=== PATIENT | male | born 1945 | race Caucasian/White ===

== ENCOUNTER 2018-10-27 11:32 | Inpatient (IN) ==
--- NOTE | 2018-10-21 10:24 | PAT Medication Instructions ---
Medication Instructions Date of Service October 21, 2018 Home Medications chlorpheniramine maleate [Chlor-Trimeton] 4 mg PO Q6H NEEDED DO NOT take the morning of surgery chlorpheniramine maleate [Chlor-Trimeton] 4 mg PO Q6H NEEDED Take morning of surgery NOTHING TO EAT OR DRINK AFTER MIDNIGHT Other Notes If you have any questions please call us at [phone] or [phone] or [phone] or [phone]
--- NOTE | 2018-10-21 11:39 | Anesthesiology Consultation ---
Date of Service October 21, 2018 Assessment & Plan (1) Encounter for pre-operative examination: Chart Review Chart Review: Acceptable Risk for Surgery and Patient seen in Pre Admission Testing Consults Requested none Teaching & Discussion Pre-Anesthesia Teaching/Discussion Notes: Instructed NPO after midnight before surgery, except medications with 15 cc of water. Medication instructions provided according to the PAT guidelines. History Surgery Operation Date: 10/27/18 13:10 Proposed Procedures p Laparoscopic Hand Assisted Nephrectomy - Jonah Gallagher II, DO Height/Weight Height: 6 ft 2 in Weight: 116.3 kg Allergies Allergy/AdvReac Type Severity Reaction Status Date / Time pollen extracts Allergy Mild HAYFEVER-SNEEZING, Verified 10/19/18 15:27 CONGESTION Medications Home Medications Medication Instructions Recorded Confirmed Last Taken chlorpheniramine maleate 4 mg PO Q6H PRN 10/19/18 10/19/18 Unknown [Chlor-Trimeton] Past Medical History Medical History History of hematuria History of kidney stones Indwelling Leon catheter present Past Surgical History Surgical History History of tonsillectomy (Resolved 1954) Past Anesthesia History No Hx of Anesthesia Complications and No Family Hx of Anesthesia Complications History of PONV No Motion Sickness Screening History of Motion Sickness: Yes Social History Smoking Status: Former smoker Smoking cigarettes per day: Smoked x 15-20 years. Smoked ~2ppd. Do You Dip or Chew Tobacco: No Smoking End Date: 5-6 YR AGO Hx Alcohol Use: Yes Alcohol type: hard liquor alcohol intake frequency: 0-2 drinks per day Hx Substance Use: No Exercise / Class Metabolic Activity II 4-5 Yardwork/Stairs/Walk up hill (Able to climb FOS. Denies SOB or CP. Plays gold in nice weather. ) Review of Systems Patient denies chest pain, shortness of breath, dyspnea on exertion, joint pain , reflux, cough, wheezing, palpitations. +acid reflux (diet controlled) Physical Exam Vital Signs BP: 162/94 (advised) P: 78 R: 22 T: 98.0 SPO2: 96% on RA Constitutional + obese ENMT Thyromental Distance: < 3.5 Finger Breadths (3) Mallampati Class: II lower partial Neck normal visual inspection and trachea midline; neck extension not limited Respiratory normal respiratory effort Auscultation: lungs clear to auscultation bilaterally Cardiovascular Rate/Rhythm: regular rate and regular rhythm Heart Sounds: no murmur Vessels: no carotid bruit Neurologic moves all extremities Psychiatric Orientation: alert and oriented x 3 Testing Electrocardiogram Date: 10/21/18 Findings: + NSR @ (79) Cannot rule out anterior infarct, age undetermined. Chest X-Ray Date: 10/21/18 FINDINGS: PA and lateral chest radiographs are obtained. No prior studies are available for comparison at the time of dictation. The cardiomediastinal silhouette is unremarkable. Small calcified granulomas are noted. There is minimal left basilar scarring/atelectasis. No airspace consolidation or pleural effusion is identified. There is no pneumothorax. The skeletal structures are osteopenic. The bony thorax appears intact. Degenerative change is noted throughout the thoracic spine. IMPRESSION: No active disease in the chest. Other Testing CT Abdomen/Pelvis w/wo contrast 10/21/18: IMPRESSION: 1. 16 cm mass arising from the upper pole the right kidney. This statistically represents a renal cell carcinoma with areas of necrosis. Segmental XGP would be within the differential although significantly less likely. 2. Right-sided nephrolithiasis 3. No ureteral or bladder calculi identified. 4. No pathologic adenopathy 5. No CT evidence of skeletal metastasis Laboratory Results 10/21/18 11:47 10/21/18 11:47 Urine Color Yellow 10/21/18 Unknown Urine Appearance Clear (Clear) 10/21/18 Unknown Urine pH 5.0 (4.5-7.5) 10/21/18 Unknown Ur Specific Rinard 1.019 (1.000-1.030) 10/21/18 Unknown Urine Protein Trace (Negative) H 10/21/18 Unknown Urine Glucose (UA) Negative (Negative) 10/21/18 Unknown Urine Ketones Negative (Negative) 10/21/18 Unknown Urine Nitrite Negative (Negative) 10/21/18 Unknown Ur Leukocyte Esterase Negative (Negative) 10/21/18 Unknown Urine WBC (Auto) 1-5 /hpf (0-5) 10/21/18 Unknown Urine RBC (Auto) 5-10 /hpf (0-4) H 10/21/18 Unknown U Hyaline Cast (Auto) 1-5 /lpf (0-5) 10/21/18 Unknown U Epithel Cells (Auto) 0-5 /lpf (0-5) 10/21/18 Unknown Urine Bacteria (Auto) Negative (Negative) 10/21/18 Unknown 10/21/18 Unknown Urine Culture - Preliminary Urine,Clean Catch Enterococcus species
[2018-10-21 12:39] LABS: Basophils # (auto) 0.04 K/uL (0-0.2); Basophils % (auto) 0.4 %; Eosinophils # (auto) 0.16 K/uL (0-0.5); Eosinophils % (auto) 1.6 %; Hematocrit (blood only) 41.6 % (42-52); Hemoglobin 13.6 g/dL (14.0-18.0); Immature Granulocytes # (auto) 0.01 K/uL (0.00-0.02); Immature Granulocytes % (auto) 0.1 %; Lymphocytes # (auto) 2.44 K/uL (1.2-3.4); Lymphocytes % (auto) 25.2 %; Mean Corpuscular Hgb Conc 32.7 g/dL (32-36); Mean Corpuscular Volume 91.8 fL (80-100); Mean Platelet Volume 9.7 fL (7.4-10.4); Monocytes # (auto) 0.74 K/uL (0.11-0.59); Monocytes % (auto) 7.6 %; Neutrophils # (auto) 6.31 K/uL (1.4-6.5); Neutrophils % (auto) 65.1 %; Platelet Count 391 K/uL (130-400); RDW Coefficient of Variation 14.2 % (11.5-14.5); RDW Standard Deviation 48.1 fL (36.4-46.3); Red Blood Count 4.53 M/uL (4.7-6.1)
[2018-10-21 12:45] LABS: BUN Creatinine Ratio 17.3 (10-20); Calcium 9.5 mg/dl (8.5-10.1); Creatinine Clr Calc Pharmacy 74.1 ml/min; Est GFR (African American) 67.4; Est GFR (Non-African American) 58.1
--- NOTE | 2018-10-21 13:05 | XRay Report ---
TWO VIEW CHEST CLINICAL HISTORY: Preoperative examination. FINDINGS: PA and lateral chest radiographs are obtained. No prior studies are available for compariso n at the time of dictation. The cardiomediastinal silhouette is unremarkable. Small calcified granul omas are noted. There is minimal left basilar scarring/atelectasis. No airspace consolidation or pleu ral effusion is identified. There is no pneumothorax. The skeletal structures are osteopenic. The bon y thorax appears intact. Degenerative change is noted throughout the thoracic spine. IMPRESSION: No active disease in the chest. Electronically signed by: Hernan Pisano M.D. 10/21/2018 1:04 PM
[2018-10-21 13:06] LABS: Appearance Urine Clear (Clear); Bacteria Urine Automated Negative (Negative); Bilirubin Urine Negative (Negative); Blood Urine 3+ (Negative); Color Urine Yellow; Epithelial Cell Urine Auto 0-5 /lpf (0-5); Glucose Urine UA Negative (Negative); Ketones Urine Negative (Negative); Leukocyte Esterase Urine Negative (Negative); Nitrite Urine Negative (Negative); Protein Urine Trace (Negative); Specific Gravity Urine 1.019 (1.000-1.030); Urobilinogen Urine Negative (Negative)
[~2018-10-27 11:32] MED LIST: CEFAZOLIN 3000MG 65 ML IV SCH; CIPROFLOXACIN 400 MG/200 ML BAG IV SCH; LR 15ML/HR IV SCH
[2018-10-27] MEDS ORDERED: NON-FORMULARY MEDICATION (Chlorpheniramine Maleate [Chlor-Trimeton] 4 MG) PO PRN (18:11)
[2018-10-27] MEDS: LACTATED RINGER'S 1,000 ML IV SCH (19:44)
[2018-10-27] MEDS: CIPROFLOXACIN 500 MG TAB PO SCH (21:36)
[2018-10-27] MEDS: AMOXICILLIN/CLAVULANATE 875 MG TAB PO SCH (21:36)
[2018-10-28] MEDS: LACTATED RINGER'S 1,000 ML IV SCH ×2 (02:24→10:11)
[2018-10-28] MEDS ORDERED: CIPROFLOXACIN 400 MG/200 ML BAG IV SCH (06:00)
[2018-10-28] MEDS ORDERED: CEFAZOLIN 3000MG 65 ML IV SCH (06:00)
[2018-10-28] MEDS: METOPROLOL TARTRATE 25 MG TAB PO SCH (07:42)
[2018-10-28] MEDS: AMOXICILLIN/CLAVULANATE 875 MG TAB PO SCH (07:42)
[2018-10-28] MEDS: CIPROFLOXACIN 500 MG TAB PO SCH (07:42)
[2018-10-28 07:48] LABS: Basophils # (auto) 0.03 K/uL (0-0.2); Basophils % (auto) 0.4 %; Eosinophils % (auto) 2.6 %; Hematocrit (blood only) 39.3 % (42-52); Immature Granulocytes # (auto) 0.01 K/uL (0.00-0.02); Immature Granulocytes % (auto) 0.1 %; Lymphocytes # (auto) 2.28 K/uL (1.2-3.4); Mean Corpuscular Hgb Conc 33.1 g/dL (32-36); Mean Corpuscular Volume 93.1 fL (80-100); Mean Platelet Volume 9.5 fL (7.4-10.4); Monocytes # (auto) 0.64 K/uL (0.11-0.59); Monocytes % (auto) 8.4 %; Neutrophils # (auto) 4.45 K/uL (1.4-6.5); Neutrophils % (auto) 58.5 %; Platelet Count 278 K/uL (130-400); RDW Coefficient of Variation 14.4 % (11.5-14.5); RDW Standard Deviation 48.8 fL (36.4-46.3); Red Blood Count 4.22 M/uL (4.7-6.1); White Blood Count 7.61 K/uL (4.8-10.8)
[2018-10-28] MEDS ORDERED: PNEUMOCOCCAL POLYSACCHARIDES 25 MCG/0.5 ML VIAL/SYR IM ONE ×2 (08:00→08:15)
[2018-10-28] MEDS ORDERED: PNEUMOCOCCAL ADMINISTRATION CHARGE ONE ×2 (08:00→08:15)
[2018-10-28] MEDS ORDERED: INFLUENZA VACCINE HIGH DOSE 65+ 0.5 ML SYR IM ONE ×2 (08:00→08:15)
[2018-10-28] MEDS ORDERED: INFLUENZA ADMINISTRATION CHARGE ONE ×2 (08:00→08:15)
[2018-10-28 08:24] LABS: Calcium 8.5 mg/dl (8.5-10.1); Creatinine Clr Calc Pharmacy 84.2 ml/min; Est GFR (African American) 79.6; Est GFR (Non-African American) 68.7; Potassium 3.8 mmol/L (3.5-5.1)
--- NOTE | 2018-10-28 09:00 | Urology Progress Note ---
Date of Service October 28, 2018 Assessment & Plan (1) Right renal mass: 73yo M with large R renal mass, pt rescheduled for surgery urgently due to this finding. Admitted overnight due to anticipation of major surgery today. Labs reviewed, type and screen completed. Staging imaging negative. Pt is NPO. Planned for R hand assisted laproscopic radical nephrectomy, with possible conversion to open today with Dr. Gallagher. Pt remains agreeable to proceed with procedure today. All questions answered. Subjective 73yo M with a large, complex R upper pole renal mass, suspicious for RCC. Pt was admitted overnight in anticipation for major surgery this AM. Pt appears calm today. Denies pain, some discomfort related to hospital bed. Denies n/v/f/c. Had an uneventful night, able to sleep some. Anxious for procedure today. BP better controlled after with antihypertensives onboard. Constitutional: no fever, no chills and no fatigue Eyes: no problem reported Ear, Nose, Mouth, Throat: no ear pain Respiratory: no cough and no dyspnea Cardiovascular: no chest pain Gastrointestinal: no abdominal pain, no belching, no nausea and no vomiting Genitourinary (Male): no dysuria and no hematuria Musculoskeletal: no back pain Integumentary: no acne Neurologic: no numbness and no paresthesia Psychiatric: no behavioral changes Endocrine: no fatigue Hematologic / Lymphatic: no easy bleeding Physical Exam 2 Vital Signs (Past 24 Hours): Last Vital Signs Temp 36.8 C 10/28/18 07:02 Pulse 70 10/28/18 07:02 Resp 16 10/28/18 07:02 BP 147/88 H 10/28/18 07:02 Pulse Ox 95 10/28/18 07:02 Constitutional: + not well nourished and no acute distress Eyes: no nystagmus ENMT: Ears: no hearing impairment Neck: trachea midline Respiratory: no respiratory distress, no labored breathing, does not use accessory muscles and no cough Cardiovascular: Vessels: no JVD Extremities: no calf tenderness and no edema Gastrointestinal (Abdomen): Inspection/Auscultation: abdomen not distended and no abdominal edema Musculoskeletal: Head/Neck/Chest: normocephalic Skin: no rashes, warm and dry Neurologic: awake; not confused and not obtunded Psychiatric: Orientation: alert and oriented x 3 Eye Contact: good eye contact Genitourinary: stern catheter draining clear, yellow Results & Data Laboratory Results Laboratory Results - last 48 hr 10/27/18 10/28/18 10/28/18 11:59 07:07 07:07 WBC 7.61 RBC 4.22 L Hgb 13.0 L Hct 39.3 L MCV 93.1 MCH 30.8 MCHC 33.1 RDW Std Deviation 48.8 H RDW Coeff of Nan 14.4 Plt Count 278 MPV 9.5 Immature Gran % (Auto) 0.1 Neut % (Auto) 58.5 Lymph % (Auto) 30.0 Bibb % (Auto) 8.4 Eos % (Auto) 2.6 Baso % (Auto) 0.4 Immature Gran # (Auto) 0.01 Neut # (Auto) 4.45 Lymph # (Auto) 2.28 Bibb # (Auto) 0.64 H Eos # (Auto) 0.20 Baso # (Auto) 0.03 Sodium 138 Potassium 3.8 Chloride 107 Carbon Dioxide 25 Anion Gap 6.0 BUN 12 Creatinine 1.08 Est Cr Clr Drug Dosing 84.2 Est GFR ( Amer) 79.6 Est GFR (Non-Af Amer) 68.7 BUN/Creatinine Ratio 11.0 Glucose 89 Calcium 8.5 Blood Type O Positive Antibody Screen NEGATIVE
[2018-10-28] MEDS ORDERED: PROPOFOL IV EMULSION 10 MG/ML 20 ML VIAL IV ONE (10:15)
[2018-10-28] MEDS ORDERED: NEOSTIGMINE METHYLSULFATE 5 MG/5 ML SYR ONE (10:15)
[2018-10-28] MEDS ORDERED: LIDOCAINE HCL 2% 2 ML VIAL/AMP(20MG/ML) INFIL ONE (10:15)
[2018-10-28] MEDS ORDERED: DEXAMETHASONE SOD INJ 4 MG/ML VIAL ONE (10:15)
[2018-10-28] MEDS ORDERED: fentaNYL citrate 100 MCG/2 ML VIAL ONE ×4 (10:15→15:18)
[2018-10-28] MEDS ORDERED: ONDANSETRON INJ 2 MG/ML 2 ML VIAL ONE ×2 (10:15→15:20)
[2018-10-28] MEDS ORDERED: MIDAZOLAM HCL 1 MG/ML 2ML VIAL ONE (10:15)
[2018-10-28] MEDS ORDERED: GLYCOPYRROLATE 0.2 MG/ML VIAL ONE (10:15)
[2018-10-28] MEDS ORDERED: ROCURONIUM BROMIDE 10 MG/ML 5 ML VIAL ONE ×9 (10:15→14:24)
[2018-10-28] MEDS ORDERED: KETAMINE HCL INJ 50 MG/ML 10 ML VIAL ONE (10:16)
[2018-10-28] MEDS ORDERED: HYDROmorphone INJ 2 MG/ML SYR/VIAL ONE (10:16)
[2018-10-28] MEDS ORDERED: ACETAMINOPHEN 1000 MG/100 ML IV IV ONE (10:46)
[2018-10-28] MEDS ORDERED: AMPICILLIN/SULBACTAM SOD 3,000 MG in 0.9 % SODIUM CHLORIDE 100 ML IV ONE (11:00)
--- NOTE | 2018-10-28 11:11 | History & Physical Bridge Note ---
Date of Service October 28, 2018 History & Physical Bridge Note I have examined the patient, reviewed the History & Physical and in the interval since the performance of the History & Physical I have noted the following changes of clinical significance: Right Hand Assist Laparoscopic Radical Nephrectomy
[2018-10-28] MEDS ORDERED: BUPIVACAINE 0.5 % 5 MG/1 ML MPF 30ML VIAL ONE (11:57)
[2018-10-28] MEDS ORDERED: SODIUM CHLORIDE 0.9% INJ 10 ML VIAL ONE (13:49)
[2018-10-28] MEDS ORDERED: LABETALOL HCL IV 5 MG/ML 20ML IV ONE (13:49)
[2018-10-28] MEDS ORDERED: HydrALAZINE HCL 20 MG/ML VIAL ONE (13:49)
[2018-10-28] MEDS ORDERED: HYDROmorphone INJ 1 MG/ML SYRINGE IV PRN (14:15)
[2018-10-28] MEDS ORDERED: ONDANSETRON INJ 2 MG/ML 2 ML VIAL IV PRN (14:15)
[2018-10-28] MEDS ORDERED: MEPERIDINE HCL 25 MG/ML CARP IV PRN (14:15)
[2018-10-28] MEDS ORDERED: ATROPINE SULFATE 0.1 MG/ML 10ML SYR IV PRN (14:15)
[2018-10-28] MEDS ORDERED: LABETALOL HCL IV 5 MG/ML 20ML IV PRN (14:15)
[2018-10-28] MEDS ORDERED: ePHEDrine sulfate 50 MG/ML AMP IV PRN (14:15)
[2018-10-28] MEDS ORDERED: PHENYLEPHRINE 100MCG/ML 5ML SYR IV PRN (14:15)
[2018-10-28] MEDS ORDERED: SURGICEL ABSORB HEMOSTAT 2IN X 14IN TOP ONE (14:16)
[2018-10-28] MEDS ORDERED: TISSEEL FIBRIN SEALANT 10ML TOP ONE (14:23)
[2018-10-28] MEDS ORDERED: SURGICEL FIBRILLAR HEMOSTAT 1 X 2IN TOP ONE (14:38)
[2018-10-28] MEDS ORDERED: MoRPHine SULFATE 4 MG/ML 1 ML CARP\\VIAL IV PRN (14:56)
--- NOTE | 2018-10-28 15:29 | Post Operative Brief Note ---
Immediate Post Op Note v1 Date of Surgery October 28, 2018 Pre & Post Diagnosis Operation Date: 10/27/18 13:10 <No data on this case meets the specified criteria> Operation Date: 10/28/18 11:00 Pre-Op Diagnosis: Right Renal Mass Post-Op Diagnosis: Right Renal Mass Procedure Operation Date: 10/27/18 13:10 <No data on this case meets the specified criteria> Operation Date: 10/28/18 11:00 Actual Procedures p Right Laparoscopic Hand Assisted Radical Nephrectomy(Right) - Jonah Gallagher II, Surgeon Jonah Gallagher II, Scuba Instructor Leighton Estimated Blood Loss 300 Findings Consistent with Post-Op Diagnosis Very large right renal mass. Specimens 1. Right radical nephrectomy Drains Leon Catheter Anesthesia Type General Complications none Disposition Disposition: Recovery Room Overlapping Procedure I was present for: the critical portions of procedure. I was immediately available: during the entire case. Back up surgeon: was not required during procedure.
--- NOTE | 2018-10-28 15:54 | Operative Report ---
Post Operative Report Pre & Post Diagnosis Operation Date: 10/27/18 13:10 <No data on this case meets the specified criteria> Operation Date: 10/28/18 11:00 Pre-Op Diagnosis: Right Renal Mass Post-Op Diagnosis: Right Renal Mass Procedure Operation Date: 10/27/18 13:10 <No data on this case meets the specified criteria> Operation Date: 10/28/18 11:00 Actual Procedures p Right Laparoscopic Hand Assisted Radical Nephrectomy(Right) - Jonah Gallagher II, DO Surgeon Jonah Gallagher II, Laboratory Animal Facility Supervisor Leighton Estimated Blood Loss 300 Findings Consistent with Post-Op Diagnosis Very large upper pole renal mass with significant adherence of perinephric tissues to surrounding area. Specimens Right Radical Kidney Drains 18 Fr Leon Anesthesia Type General Complications none Indications Very large renal mass with gross hematuria. Risks and benefits discussed at length. Description of Procedure The patient was brought to the operative suite and placed under general endotracheal intubation anesthesia in the supine position. The patient was transferred to right side propped with support. The patient was placed into a flex'ed position and then placed into mild reverse Trendelenberg. At this point , the patient prepped and draped in the usual sterile fashion and a timeout was completed. Preoperative antibiotics of Unasyn had been given. KIMBERLY's and SCD's were placed on the patient's lower extremities. A catheter was exchanged using sterile technique. With the time out completed the patient was flexed and the skin was marked. The right lower quadrant was marked lateral to the rectus shealth. The area was anesthetized and an incision was made to the fascial layer. The lateral edge of the rectus sheath was opened and the rectus muscles retracted medially. The posterior sheath/peritoneum was then entered. This was manually probed and no major adhesions or areas of concern were noted. The fascia was further opened and the hand assist gel port was placed. The midline and lateral camera/ working port sites were assessed. The port site was anesthetized. A small incision was made into the skin and subcutaneous tissues. A 12 mm camera port was placed. The cavity was insufflated to 15mmHG. A laparoscopic camera was placed and the abdominal cavity inspected. No concerning features were noted. The second 12 mm port was then placed in a similar fashion. Alessandra Manzanares was integral in port placement, camera utilization, and first assisting for the entire remainder of the procedure. She remained in sterile attire and then proceeded to assist the remainder of the case. Dr. Lucero was readily available for assistance during siddiqui portions of the proceeding procedure. The kidney mass was notably displacing the liver and hepatic flexture of the colon medially due to its large size. On assessment, it was somewhat fixed laterally and superiorly. At this point, the white line of Toldt was assessed and opened. The laparoscopic harmonic device and blunt dissection was utilized. The colon was mobilized medially to expose the retroperitoneum and the area assessed. Adhesions were freed to allow mobilization. A small amount of adhesions were noted from the colon and were freed. These were dissected with blunt technique. Cautery was used to assist dissection and control bleeding. The retroperitoneal fat was assessed. The ureter and gonadal vein were identified. The ureter was isolated and dissection was taken superiorly. This was followed to the renal pelvis. There was a notable amount of adhesion to the liver which blanketed the medial part of the kidney. These adhesions were dissected and freed. The Renal Artery and Vein were then cleaned and exposed. They were individually isolated. The Gonadal vein was found to be directly anterior to the renal artery and due to inflammation proved difficult to dissect away. Due to this, it was clamped and transected. The Endo TYRON stapler with a vascular load was selected. This was placed across the renal artery. The stapler was engaged and the artery transected after isolating the artery. The stump was assessed and no major bleeding was noted. The stapler was then placed across the renal vein and this was stapled and transected. The kidney and surrounding area was inspected. No major bleeding or areas of concern. The perinephric tissues posterior, lateral, superior, and inferior were then freed. Significant adhesions were noted laterally and superiorly. The Adrenal gland was not fully able to be identified and may have been included in the mass/surgical specimen. No obvious tumor invasion into the liver was appreciated, however thick adherent tissue was noted between the bulk of the mass and the inferior portion of the liver and diaphragm laterally. This dissection was completed bluntly and with the harmonic device. Due to the extreme size of the mass, superiorly the dissection was a slow process. Once fully freed and all accessory vessels and surrounding tissues fulgurated and sealed with the harmonic device, the ureter was dissected inferiorly with the surrounding retroperitoneal tissues. A stapler was used just superior to the crossing of the iliac vessels to staple and transect the ureter and retroperitoneal tissues. The specimen was then fully freed. The wound bed was throughly inspected with care to assess the inferior liver. The area was irrigated. No severe or significant bleeding was noted. The vessel stumps were also inspected. No bleeding or other major areas of concern were discovered. Surgicel hemostatic agent sheets were placed under the liver and on the vessel stumps. Hemostatic agents Tisseel was also placed. This Hemostatic agent was also placed on the vessel stumps. No major bleeding or other issues. The entire dissection space was inspected one final time. No bleeding or injuries or areas of concern were noted. No tumor or other concerning features were noted. At this point, The port sites were all assessed laparoscopically. The port sites were closed with the Oniel Douglass device and a 1-0 Vicryl suture. The gel port was removed and the lower quadarant asencio-like incision was assessed. The skin laterally was marked, anesthetized, and opened further exposing fascia which was then opened in order to allow removal of the large surgical specimen. This was then removed and sent for pathologic analysis. The wound bed was inspected a final time without any major bleeding. Counts were completed and correct x 2. The posterior fascial sheath/peritoneum was closed with a running 1-0 Vicryl suture. A running PDS suture was used to close anterior rectus sheath fascia. The subcutaneous tissues were closed with a running 2-0 Vicryl sture. The skin at each port site was closed with a running Monocryl suture. The skin of the lower quadrant incision was closed with surgical kimberlee. The area was cleaned and glue placed on each incision of the port sites. The patient was cleaned and bandaged in the lower quadrant. He was moved back into the supine position The patient was further cleaned, aroused from anesthesia, and transferred to the pacu in stable condition having tolerated the procedure well with no complications. Counts were correct x 2 and no issues or complications were appreciated. I was present and participated in all aspects of the procedure. MARY White was critical in the portions as mentioned above. She was also involved with the closure process including fascial closure. I attest to the content of the Intraoperative Record and any orders documented therein. Any exceptions are noted below.
[2018-10-28] MEDS: fentaNYL citrate 100 MCG/2 ML VIAL IV PRN ×2 (16:11→16:18)
[2018-10-28 16:55] LABS: Basophils # (auto) 0.01 K/uL (0-0.2); Basophils % (auto) 0.1 %; Hematocrit (blood only) 39.9 % (42-52); Immature Granulocytes # (auto) 0.03 K/uL (0.00-0.02); Immature Granulocytes % (auto) 0.2 %; Lymphocytes % (auto) 8.5 %; Mean Platelet Volume 9.5 fL (7.4-10.4); Monocytes # (auto) 0.61 K/uL (0.11-0.59); Monocytes % (auto) 4.7 %; Neutrophils # (auto) 11.25 K/uL (1.4-6.5); Neutrophils % (auto) 86.5 %; Platelet Count 280 K/uL (130-400); RDW Coefficient of Variation 14.4 % (11.5-14.5); RDW Standard Deviation 48.9 fL (36.4-46.3); Red Blood Count 4.29 M/uL (4.7-6.1)
[2018-10-28 17:11] LABS: Mean Corpuscular Hgb Conc 32.6 g/dL (32-36)
[2018-10-28 17:19] LABS: BUN Creatinine Ratio 10.9 (10-20); Creatinine Clr Calc Pharmacy 73.9 ml/min; Est GFR (Non-African American) 58.7; Potassium 4.1 mmol/L (3.5-5.1)
[2018-10-28] MEDS: OXYCODONE HCL IR 5 MG TAB (IMMEDIATE RELEASE) PO PRN ×3 (17:30→23:11)
[2018-10-28] MEDS: AMPICILLIN/SULBACTAM SOD 3,000 MG in 0.9 % SODIUM CHLORIDE 100 ML IV SCH (18:39)
[2018-10-28] MEDS: FAMOTIDINE 20 MG in SYRINGE 3 ML IV SCH (19:06)
[2018-10-28] MEDS: DOCUSATE SODIUM 100 MG CAP PO SCH (20:54)
[2018-10-29] MEDS: AMPICILLIN/SULBACTAM SOD 3,000 MG in 0.9 % SODIUM CHLORIDE 100 ML IV SCH ×4 (00:12→18:26)
[2018-10-29] MEDS: ACETAMINOPHEN 1,000 MG/100 ML VIAL IV PRN ×2 (00:22→13:52)
[2018-10-29] MEDS: FAMOTIDINE 20 MG in SYRINGE 3 ML IV SCH (05:24)
[2018-10-29] MEDS: OXYCODONE HCL IR 5 MG TAB (IMMEDIATE RELEASE) PO PRN ×4 (05:25→21:07)
[2018-10-29 06:30] LABS: Basophils # (auto) 0.01 K/uL (0-0.2); Basophils % (auto) 0.1 %; Eosinophils # (auto) 0.02 K/uL (0-0.5); Eosinophils % (auto) 0.2 %; Hematocrit (blood only) 37.9 % (42-52); Hemoglobin 12.4 g/dL (14.0-18.0); Immature Granulocytes # (auto) 0.03 K/uL (0.00-0.02); Immature Granulocytes % (auto) 0.3 %; Lymphocytes # (auto) 1.91 K/uL (1.2-3.4); Lymphocytes % (auto) 21.2 %; Mean Corpuscular Hgb Conc 32.7 g/dL (32-36); Mean Corpuscular Volume 93.3 fL (80-100); Mean Platelet Volume 9.4 fL (7.4-10.4); Monocytes # (auto) 0.89 K/uL (0.11-0.59); Monocytes % (auto) 9.9 %; Neutrophils # (auto) 6.17 K/uL (1.4-6.5); Neutrophils % (auto) 68.3 %; Platelet Count 271 K/uL (130-400); RDW Coefficient of Variation 14.3 % (11.5-14.5); RDW Standard Deviation 48.6 fL (36.4-46.3); Red Blood Count 4.06 M/uL (4.7-6.1); White Blood Count 9.03 K/uL (4.8-10.8)
[2018-10-29 07:05] LABS: BUN Creatinine Ratio 9.6 (10-20); Calcium 8.1 mg/dl (8.5-10.1); Est GFR (African American) 64.8; Est GFR (Non-African American) 55.9; Potassium 3.9 mmol/L (3.5-5.1)
--- NOTE | 2018-10-29 07:52 | Anesthesiology Progress Note ---
Date of Service October 29, 2018 Anesthesia Post Procedure Vital Signs Vital Signs: Temp Pulse Pulse Resp BP BP Pulse Ox 10/29/18 07:25 36.8 C 68 14 122/75 90 10/29/18 02:12 36.9 C 74 16 125/74 91 10/28/18 23:12 36.8 C 77 18 149/80 H 93 10/28/18 19:34 36.6 C 77 22 166/95 H 93 10/28/18 18:32 36.7 C 75 18 149/87 H 92 10/28/18 17:15 37.1 C 82 18 131/79 90 10/28/18 16:40 89 18 146/86 H 93 10/28/18 16:30 36.7 C 80 18 154/80 H 94 10/28/18 16:20 82 18 169/99 H 94 10/28/18 16:10 84 15 177/94 H 94 10/28/18 16:00 87 15 179/96 H 94 10/28/18 15:50 82 14 157/86 H 95 10/28/18 15:42 36.7 C 83 16 153/85 H 95 10/28/18 14:22 36.9 C 61 16 121/75 95 10/28/18 11:02 36.8 C 75 20 176/88 H 95 Pain Intensity Abdomen: Pain Intensity: 4 Notes Mental Status: alert / awake / arousable Patient Amnestic to Procedure: Yes Nausea / Vomiting: adequately controlled Pain: adequately controlled Airway Patency, RR, SpO2: stable & adequate BP & HR: stable & adequate Hydration State: stable & adequate Anesthetic Complications: no major complications apparent and Pt Satisfied with anesthetic care Notes: Patient was signed out to call team. He appears to have done well.
--- NOTE | 2018-10-29 08:09 | Anesthesiology Progress Note ---
Date of Service October 29, 2018 Anesthesia Post Procedure Vital Signs Vital Signs: Temp Pulse Pulse Resp BP BP Pulse Ox 10/29/18 07:25 36.8 C 68 14 122/75 90 10/29/18 02:12 36.9 C 74 16 125/74 91 10/28/18 23:12 36.8 C 77 18 149/80 H 93 10/28/18 19:34 36.6 C 77 22 166/95 H 93 10/28/18 18:32 36.7 C 75 18 149/87 H 92 10/28/18 17:15 37.1 C 82 18 131/79 90 10/28/18 16:40 89 18 146/86 H 93 10/28/18 16:30 36.7 C 80 18 154/80 H 94 10/28/18 16:20 82 18 169/99 H 94 10/28/18 16:10 84 15 177/94 H 94 10/28/18 16:00 87 15 179/96 H 94 10/28/18 15:50 82 14 157/86 H 95 10/28/18 15:42 36.7 C 83 16 153/85 H 95 10/28/18 14:22 36.9 C 61 16 121/75 95 10/28/18 11:02 36.8 C 75 20 176/88 H 95 Pain Intensity Abdomen: Pain Intensity: 4 Notes Mental Status: alert / awake / arousable and participated in evaluation Patient Amnestic to Procedure: Yes Nausea / Vomiting: adequately controlled Pain: adequately controlled Airway Patency, RR, SpO2: stable & adequate BP & HR: stable & adequate Hydration State: stable & adequate Anesthetic Complications: no major complications apparent and Pt Satisfied with anesthetic care
[2018-10-29] MEDS: DOCUSATE SODIUM 100 MG CAP PO SCH ×2 (09:10→20:40)
[2018-10-29] MEDS: METOPROLOL TARTRATE 25 MG TAB PO SCH (09:51)
--- NOTE | 2018-10-29 13:27 | Urology Progress Note ---
Date of Service October 29, 2018 Assessment & Plan (1) Right renal mass: 73yo M p Right Laparoscopic Hand Assisted Radical Nephrectomy Labs reviewed, stable. Progressing well. tolerating clear liquids. Increasing diet to soft/regular. Will start heparin SQ for DVT prophylaxis. Encourage ambulation in the halls. Continue IS. Continue unasyn. Continue stern, possible voiding trial tomorrow. Plan to d/c home tomorrow if continues to progress. Subjective 73yo M POD #1 s/p p Right Laparoscopic Hand Assisted Radical Nephrectomy by Dr. Gallagher Pt doing well today, progressing as expected. No major issues overnight. Resting in litter at time of evaluation. Pain controlled with PO options. OOB to chair today. Denies n/v/f/c. Has not passed gas. Tolerating clear liquids. Physical Exam 2 Vital Signs (Past 24 Hours): Last Vital Signs Temp 36.7 C 10/29/18 11:16 Pulse 88 10/29/18 11:16 Resp 14 10/29/18 11:16 BP 123/78 10/29/18 11:16 Pulse Ox 88 L 10/29/18 11:16 Physical Exam: A&Ox3 RRR Abs soft incisions well approximated. Dressing removed from lateral incision, kimberlee intact. No drainage or erythema. Stern draining clear yellow
[2018-10-29] MEDS ORDERED: AMPICILLIN/SULBACTAM SOD 1,500 MG in 0.9 % SODIUM CHLORIDE 100 ML IV SCH (13:45)
[2018-10-29] MEDS: FAMOTIDINE 20 MG TAB PO SCH (20:40)
[2018-10-29] MEDS: HEPARIN SOD 5,000 UNIT/0.5 ML VIAL SQ SCH (20:41)
[2018-10-30] MEDS: AMPICILLIN/SULBACTAM SOD 3,000 MG in 0.9 % SODIUM CHLORIDE 100 ML IV SCH ×5 (00:17→23:30)
[2018-10-30] MEDS: OXYCODONE HCL IR 5 MG TAB (IMMEDIATE RELEASE) PO PRN ×3 (00:59→09:44)
[2018-10-30 06:12] LABS: Basophils # (auto) 0.01 K/uL (0-0.2); Basophils % (auto) 0.1 %; Eosinophils # (auto) 0.13 K/uL (0-0.5); Eosinophils % (auto) 1.3 %; Hematocrit (blood only) 38.3 % (42-52); Immature Granulocytes # (auto) 0.01 K/uL (0.00-0.02); Immature Granulocytes % (auto) 0.1 %; Lymphocytes # (auto) 1.83 K/uL (1.2-3.4); Lymphocytes % (auto) 18.5 %; Mean Corpuscular Hgb Conc 33.9 g/dL (32-36); Mean Corpuscular Volume 92.5 fL (80-100); Mean Platelet Volume 9.6 fL (7.4-10.4); Monocytes # (auto) 0.86 K/uL (0.11-0.59); Monocytes % (auto) 8.7 %; Neutrophils # (auto) 7.05 K/uL (1.4-6.5); Neutrophils % (auto) 71.3 %; Platelet Count 249 K/uL (130-400); RDW Coefficient of Variation 14.5 % (11.5-14.5); RDW Standard Deviation 49.2 fL (36.4-46.3); Red Blood Count 4.14 M/uL (4.7-6.1); White Blood Count 9.89 K/uL (4.8-10.8)
[2018-10-30 06:42] LABS: BUN Creatinine Ratio 9.2 (10-20); Creatinine Clr Calc Pharmacy 84.2 ml/min; Est GFR (African American) 79.6; Est GFR (Non-African American) 68.7; Potassium 3.6 mmol/L (3.5-5.1)
[2018-10-30] MEDS: DOCUSATE SODIUM 100 MG CAP PO SCH ×2 (08:32→21:28)
[2018-10-30] MEDS: FAMOTIDINE 20 MG TAB PO SCH ×2 (08:32→21:29)
[2018-10-30] MEDS: METOPROLOL TARTRATE 25 MG TAB PO SCH ×2 (08:32→21:28)
[2018-10-30] MEDS: HEPARIN SOD 5,000 UNIT/0.5 ML VIAL SQ SCH ×2 (08:33→21:29)
--- NOTE | 2018-10-30 09:23 | Urology Progress Note ---
Date of Service October 30, 2018 Assessment & Plan (1) Right renal mass: 73yo M POD #2 s/p Right Laparoscopic Hand Assisted Radical Nephrectomy Pt evaluated with Dr. Gallagher this AM. Labs reviewed, stable. Patient doing well. Incisional pain is bothersome, encouraged to splint with movements abd continue PO pain control as needed. Encourage to continue to ambulation in the halls. Continue to monitor spo2 off of supplemental O2. Encourage more aggressive use of IS. Okay to d/c stern this AM. Bladder scan qshift PRN. Pt apprehensive to go home today due to pain control. Will also continue to monitor O2 sat off NC. Likely will go home tomorrow. Will continue to monitor closely. Subjective 73yo M POD #2 s/p p Right Laparoscopic Hand Assisted Radical Nephrectomy by Dr. Gallagher Pt progressing well, understandably anxious regarding admission, diagnosis, and expected course. No major issues overnight. Resting in litter at time of evaluation. Having some difficulty with incisional pain with movement. Supplemental O2 removed this AM, SpO2 remaining >92% Denies n/v/f/c. Has not passed gas yet, tolerating soft diet. Physical Exam 2 Vital Signs (Past 24 Hours): Last Vital Signs Temp 36.7 C 10/30/18 08:13 Pulse 91 H 10/30/18 08:30 Resp 18 10/30/18 08:30 BP 159/100 H 10/30/18 08:30 Pulse Ox 93 10/30/18 08:30 Physical Exam: A&Ox3 NO JVD RRR, supplemental O2 removed this AM Stern draining clear yellow incision sites well approximated. no erythema, no drainage. Results & Data Laboratory Results Laboratory Results - last 48 hr 10/28/18 10/28/18 10/28/18 07:07 16:42 16:42 WBC 13.00 H RBC 4.29 L Hgb 13.0 L Hct 39.9 L MCV 93.0 MCH 30.3 MCHC 32.6 RDW Std Deviation 48.9 H RDW Coeff of Nan 14.4 Plt Count 280 MPV 9.5 Immature Gran % (Auto) 0.2 Neut % (Auto) 86.5 Lymph % (Auto) 8.5 [place] % (Auto) 4.7 Eos % (Auto) 0.0 Baso % (Auto) 0.1 Immature Gran # (Auto) 0.03 H Neut # (Auto) 11.25 H Lymph # (Auto) 1.10 L [place] # (Auto) 0.61 H Eos # (Auto) 0.00 Baso # (Auto) 0.01 Sodium 137 Potassium 4.1 Chloride 106 Carbon Dioxide 24 Anion Gap 7.0 BUN 13 Creatinine 1.23 Est Cr Clr Drug Dosing 73.9 Est GFR ( Amer) 68.0 Est GFR (Non-Af Amer) 58.7 BUN/Creatinine Ratio 10.9 Glucose 157 H Calcium 8.0 L Hepatitis C Ab Screen Neg 10/29/18 10/29/18 10/30/18 05:48 05:48 05:30 WBC 9.03 9.89 RBC 4.06 L 4.14 L Hgb 12.4 L 13.0 L Hct 37.9 L 38.3 L MCV 93.3 92.5 MCH 30.5 31.4 MCHC 32.7 33.9 RDW Std Deviation 48.6 H 49.2 H RDW Coeff of Nan 14.3 14.5 Plt Count 271 249 MPV 9.4 9.6 Immature Gran % (Auto) 0.3 0.1 Neut % (Auto) 68.3 71.3 Lymph % (Auto) 21.2 18.5 [place] % (Auto) 9.9 8.7 Eos % (Auto) 0.2 1.3 Baso % (Auto) 0.1 0.1 Immature Gran # (Auto) 0.03 H 0.01 Neut # (Auto) 6.17 7.05 H Lymph # (Auto) 1.91 1.83 [place] # (Auto) 0.89 H 0.86 H Eos # (Auto) 0.02 0.13 Baso # (Auto) 0.01 0.01 Sodium 135 L Potassium 3.9 Chloride 102 Carbon Dioxide 27 Anion Gap 6.0 BUN 12 Creatinine 1.28 Est Cr Clr Drug Dosing 71.0 Est GFR ( Amer) 64.8 Est GFR (Non-Af Amer) 55.9 BUN/Creatinine Ratio 9.6 L Glucose 102 H Calcium 8.1 L Hepatitis C Ab Screen 10/30/18 05:30 WBC RBC Hgb Hct MCV MCH MCHC RDW Std Deviation RDW Coeff of Nan Plt Count MPV Immature Gran % (Auto) Neut % (Auto) Lymph % (Auto) [place] % (Auto) Eos % (Auto) Baso % (Auto) Immature Gran # (Auto) Neut # (Auto) Lymph # (Auto) [place] # (Auto) Eos # (Auto) Baso # (Auto) Sodium 133 L Potassium 3.6 Chloride 100 Carbon Dioxide 26 Anion Gap 7.0 BUN 10 Creatinine 1.08 Est Cr Clr Drug Dosing 84.2 Est GFR ( Amer) 79.6 Est GFR (Non-Af Amer) 68.7 BUN/Creatinine Ratio 9.2 L Glucose 88 Calcium 8.0 L Hepatitis C Ab Screen
[2018-10-30] MEDS ORDERED: CYCLOBENZAPRINE HCL 5 MG TAB PO PRN (09:56)
[2018-10-30] MEDS: ONDANSETRON INJ 2 MG/ML 2 ML VIAL IV PRN (12:37)
[2018-10-30] MEDS ORDERED: PROMETHAZINE HCL 12.5 MG in SODIUM CHLORIDE 0.9% 50 ML IV PRN (12:44)
--- NOTE | 2018-10-30 15:30 | Consultation ---
Date of Consultation October 30, 2018 Assessment & Plan (1) Right renal mass: - S/P R Lap Hand-Assisted Radical Nephrectomy on 10/28 - suspected RCC - Surgical management per primary team Present on Admission?: Yes (2) Elevated blood pressure reading: - No formal diagnosis of HTN - Given the tumor burden on the renal system it would be no surprised to have elevated BP readings contributing to a secondary HTN - this is likely to resolve given the removal of this mass - However, could have some underlying essential HTN as well however in the acute situation this would be better off conservatively managed and monitored to not induce hypotension as a possible secondary cause may be fixed with removal of this mass and ultimately would recommend close PCP monitoring if BP continues to be an issue after recovery - High BP readings from even in the ED prior to this mass discovery correlate with urinary retention and therefore some BP readings can easily be situational - currently between pain and nausea/emesis today this could be factoring in as he is asymptomatic with his readings - With the readings we have here is average is around 140-170/80-90 which again has many factors contributing to these readings and aggressive blood pressure control is not necessary - He was started on Metoprolol 25 mg daily as an outpatient and is tolerating this medication well. Given the short duration of coverage he may get better control with BID dosing which I did adjust - HR is stable and BID dosing should not be an issue but should be monitored and hold parameters utilized - Recommend GI symptom control/pain control - Recommend outpatient monitoring of this when acute problems/situations resolve to assess for further BP control needs Present on Admission?: Yes (3) Abdominal distension: - Reports emesis with eating today and increased belching; passing flatus but denies BM x 2 days and more abdominal distension - BS are slightly hypoactive - Will order a KUB as ileus is possible - diet has already been reduced down to a clear liquid diet and can be advanced pending XR and tolerance - Recommend to continue bowel regimen - has Colace BID; will add Miralax BID; could consider Senna given opiates but can monitor; encouraged ambulation Present on Admission?: Yes History of Present Illness Reason for Consultation: Elevated Blood Pressure Attending Physician: Jonah Gallagher, II, DO History of Present Illness Mr. Oswald is a 73 y/o male with an unremarkable PMHx who is S/P R laparoscopic hand assisted radical nephrectomy on 10/28. Hospitalist consulted for elevated blood pressure readings. Pt was found to have a 16 cm R renal mass with areas of possible necrosis on CT scan. He states he never had pain but was having urinary retention and hematuria which led to this discovery. He reports that he suspects he may have had some elevated blood pressures in the past but this only has been monitored. He states his BP was "a little high" on a routine check but only was told to monitor. He has had some persistent higher readings from the ED and while hospitalized with some normalizing readings as well. He was started on Metoprolol 25 mg daily as an outpatient in preparation for his surgery. He states he still has intermittent pain but is more bothered by nausea and an episode of emesis today. He reports the eggs he ate earlier are not sitting right with him. He is passing flatus but no bowel movement in a couple days and that his abdomen is more bloated than normal. He denies headaches or vision changes with BP readings. Allergies Allergy/AdvReac Type Severity Reaction Status Date / Time pollen extracts Allergy Mild HAYFEVER-SNEEZING, Verified 10/27/18 12:00 CONGESTION Home Medications Home Medications Medication Instructions Recorded Confirmed Type chlorpheniramine maleate 4 mg PO Q6H PRN 10/19/18 10/27/18 History [Chlor-Trimeton] amoxicillin-pot clavulanate 1 tab PO BID 10/27/18 10/27/18 History ciprofloxacin HCl 500 mg PO BID 10/27/18 10/27/18 History metoprolol tartrate 25 mg PO DAILY 10/27/18 10/27/18 History cyclobenzaprine 5 mg PO BID PRN #14 tab 10/30/18 Rx docusate sodium [Colace] 100 mg PO BID #60 cap 10/30/18 Rx oxycodone-acetaminophen [Percocet] 1 tab PO TID PRN #20 tab 10/30/18 Rx Patient History Medical History History of hematuria History of kidney stones Indwelling Leon catheter present Surgical History History of tonsillectomy (Resolved 1954) Family History Father , 1981, heart attack Heart attack Diabetes Mother , 2000, brain cancer Brain cancer Social History Current Living Situation: Alone Other Information That Helps Us Care for You: No Feels Safe at Home: Yes Safety Concerns: Feels Safe At This Time Smoking Status: Former smoker Cigarettes per Day: Smoked x 15-20 years. Smoked ~2ppd. Do You Dip or Chew Tobacco: No Smoking End Date: 5-6 YR AGO Hx Alcohol Use: Yes Alcohol type: hard liquor Alcohol Intake Frequency: 0-2 drinks per day Hx Substance Use: No Beliefs That Will Affect Care: None Preferred Language: Welsh Communication Ability: Effective Review of Systems Constitutional: no fever, no chills, no fatigue and no weakness Eyes: no worsening vision Ear, Nose, Mouth, Throat: no nasal congestion, no sore throat and no dysphagia Respiratory: no cough and no dyspnea Cardiovascular: no chest pain, no palpitations and no edema Gastrointestinal: + belching, + bloating, + nausea, + vomiting and + constipation; no abdominal pain and no diarrhea/loose stools Genitourinary (Male): no dysuria Integumentary: no rash Physical Exam 2 Vital Signs (Past 24 Hours): Last Vital Signs Temp 36.7 C 10/30/18 15:04 Pulse 92 H 10/30/18 15:04 Resp 16 10/30/18 15:04 BP 148/93 H 10/30/18 15:04 Pulse Ox 90 10/30/18 15:04 Constitutional: WD/WN, vitals as above Eyes: + anicteric sclerae and PERRL ENMT: Ears: no hearing impairment Throat: no posterior oropharynx abnormality Neck: trachea midline Respiratory: normal respiratory effort, lungs clear to auscultation Cardiovascular: Rate/Rhythm: regular rate and regular rhythm Gastrointestinal (Abdomen): Inspection/Auscultation: + abdomen distended and normal bowel sounds (hypoactive) Percussion/Palpation: abdomen nontender, no guarding and abdomen not rigid Musculoskeletal: Head/Neck/Chest: normocephalic and head atraumatic Extremities: no cyanosis and no clubbing Skin: no rashes, warm and dry Neurologic: moves all extremities Psychiatric: A+Ox3, euthymic affect
[2018-10-30] MEDS ORDERED: POLYETHYLENE (MIRALAX) 17 GM PACK PO PRN (16:14)
--- NOTE | 2018-10-30 18:19 | XRay Report ---
KUB HISTORY: Acute generalized abdominal pain with ileus Abd Distended/Ileus? COMPARISON: CT abdomen pelvis 10/21/2018 FINDINGS: Skin kimberlee are noted along the abdominal right lower quadrant distribution. Mottled lucencies are n oted about the right upper and right lower quadrant. Multiple dilated air-filled loops of small bowel are seen measuring up to 4.8 cm transversely. Air is also noted within the large bowel. No definite pneumatosis. Degenerative changes are noted about the spine, pelvis and hips. Surgical suture materia l noted within the abdominal right upper quadrant. No definite urolith. IMPRESSION: 1. Multiple dilated air-filled loops of small bowel throughout the abdomen are noted in addition to a ir also seen within the large bowel suggestive of postoperative ileus with obstruction considered les s likely. Follow-up recommended. 2. Multiple mottled lucencies about the right abdomen are indeterminate. Findings may be secondary to postoperative pneumoperitoneum and/or foci external to the patient. Attention at follow-up recommend ed. Electronically signed by: Justin Morfin M.D. 10/30/2018 6:18 PM
[2018-10-31] MEDS: AMPICILLIN/SULBACTAM SOD 3,000 MG in 0.9 % SODIUM CHLORIDE 100 ML IV SCH ×3 (05:53→17:03)
[2018-10-31] MEDS: ONDANSETRON INJ 2 MG/ML 2 ML VIAL IV PRN (05:56)
[2018-10-31 07:25] LABS: Basophils # (auto) 0.01 K/uL (0-0.2); Basophils % (auto) 0.1 %; Eosinophils % (auto) 0.6 %; Hematocrit (blood only) 44.8 % (42-52); Hemoglobin 15.1 g/dL (14.0-18.0); Immature Granulocytes # (auto) 0.07 K/uL (0.00-0.02); Immature Granulocytes % (auto) 0.5 %; Lymphocytes # (auto) 2.22 K/uL (1.2-3.4); Lymphocytes % (auto) 14.3 %; Mean Corpuscular Hgb Conc 33.7 g/dL (32-36); Mean Corpuscular Volume 92.4 fL (80-100); Monocytes % (auto) 7.1 %; Neutrophils # (auto) 12.02 K/uL (1.4-6.5); Neutrophils % (auto) 77.4 %; Platelet Count 334 K/uL (130-400); RDW Coefficient of Variation 14.6 % (11.5-14.5); RDW Standard Deviation 49.1 fL (36.4-46.3); Red Blood Count 4.85 M/uL (4.7-6.1); White Blood Count 15.52 K/uL (4.8-10.8)
[2018-10-31 08:09] LABS: BUN Creatinine Ratio 11.4 (10-20); Calcium 8.5 mg/dl (8.5-10.1); Creatinine Clr Calc Pharmacy 62.3 ml/min; Est GFR (African American) 55.3; Est GFR (Non-African American) 47.7
[2018-10-31] MEDS ORDERED: SODIUM CHLORIDE 0.9% 1000ML 1,000 ML IV SCH (08:45)
[2018-10-31] MEDS: METOPROLOL TARTRATE 25 MG TAB PO SCH ×2 (09:20→21:06)
[2018-10-31] MEDS: FAMOTIDINE 20 MG TAB PO SCH ×2 (09:21→21:06)
[2018-10-31] MEDS: DOCUSATE SODIUM 100 MG CAP PO SCH ×2 (09:21→21:06)
[2018-10-31] MEDS: HEPARIN SOD 5,000 UNIT/0.5 ML VIAL SQ SCH ×2 (09:21→21:05)
--- NOTE | 2018-10-31 11:40 | Urology Progress Note ---
Date of Service October 31, 2018 Subjective Postop day 3 left nephrectomy Patient is afebrile vital signs are stable No complaints of nausea or pain today although he says he is not passing any flatus Tolerating sips of clear liquids okay Physical exam Abdomen is distended tympanitic very few bowel sounds Extremities without calf pain or edema Wounds clean Laboratory results White count up to 15,000 Sodium at 130 KUB reviewed consistent with ileus Assessment Post left nephrectomy now with postop ileus Continue IV fluids Patient can continue with sips of clear liquids for mouth comfort Encouraged him to get out of bed and walk in the halls Recheck labs in the morning Physical Exam 2 Vital Signs (Past 24 Hours): Last Vital Signs Temp 36.5 C 10/31/18 11:31 Pulse 86 10/31/18 11:31 Resp 18 10/31/18 11:31 BP 120/84 10/31/18 11:31 Pulse Ox 94 10/31/18 11:31
--- NOTE | 2018-10-31 17:11 | Hospitalist Progress Note ---
Date of Service October 31, 2018 Assessment & Plan (1) Right renal mass: - S/P R Lap Hand-Assisted Radical Nephrectomy on 10/28 - suspected RCC - Surgical management per primary team (2) Elevated blood pressure reading: - No formal diagnosis of HTN - Secondary to tumor burden vs essential htn - - bp responded well to addition of second dose of metoprolol titrate in the evening - continue metoprolol bid - Recommend GI symptom control/pain control - Recommend outpatient monitoring of this when acute problems/situations resolve to assess for further BP control needs (3) Abdominal distension: Post op ileus as see on KUB - continue NPO with sips of water, will reevaluate tomorrow for possibility of advancing diet (4) KYUNG (acute kidney injury): Creatinine 1.46 today - will initiate NSS @ 125 especially while patient is not able to take in much po prp am Subjective Mr. Oswald reports that he is having lots of belching as well as nausea. No emesis since small one yesterday. His pain is well controlled Review of Systems All systems reviewed & are unremarkable except as noted in HPI & below Physical Exam 2 Vital Signs (Past 24 Hours): Last Vital Signs Temp 36.7 C 10/31/18 16:02 Pulse 78 10/31/18 16:02 Resp 20 10/31/18 16:02 BP 134/90 10/31/18 16:02 Pulse Ox 93 10/31/18 16:02 Physical Exam: General: no distress Eyes: normal inspection, PERLL Respiratory: chest non tender, clear to auscultation, normal breath sounds, no respiratory distress, no accessory muscle use Cardiac: regular rate and rhythm, no rub or gallop, no murmur, no edema, no jvd GI/: abdomen distended, very hypoactive bowel sounds, tender to palpation Extremities: normal range of motion, normal strength, non tender Neuro/Psych: alert and oriented x 3, normal mood and affect Skin: normal color, dry, kimberlee intact, incision well approximated without drainage Results & Data Laboratory Results Abnormal lab results 10/31/18 10/31/18 Range/Units 06:46 06:46 WBC 15.52 H (4.8-10.8) K/uL RDW Std Deviation 49.1 H (36.4-46.3) fL RDW Coeff of Nan 14.6 H (11.5-14.5) % Immature Gran # (Auto) 0.07 H (0.00-0.02) K/uL Neut # (Auto) 12.02 H (1.4-6.5) K/uL [place] # (Auto) 1.10 H (0.11-0.59) K/uL Sodium 130 L (136-145) mmol/L Chloride 95 L (98-107) mmol/L Creatinine 1.46 H D (0.6-1.4) mg/dl Glucose 133 H (70-99) mg/dl
[2018-10-31] MEDS: SODIUM CHLORIDE 0.9% 1000ML 1,000 ML IV SCH (18:58)
[2018-11-01] MEDS: AMPICILLIN/SULBACTAM SOD 3,000 MG in 0.9 % SODIUM CHLORIDE 100 ML IV SCH ×5 (00:39→23:47)
[2018-11-01] MEDS: SODIUM CHLORIDE 0.9% 1000ML 1,000 ML IV SCH ×3 (03:24→20:42)
[2018-11-01 06:49] LABS: Basophils # (auto) 0.02 K/uL (0-0.2); Basophils % (auto) 0.2 %; Eosinophils % (auto) 1.9 %; Immature Granulocytes # (auto) 0.03 K/uL (0.00-0.02); Immature Granulocytes % (auto) 0.3 %; Lymphocytes # (auto) 2.17 K/uL (1.2-3.4); Lymphocytes % (auto) 20.6 %; Mean Corpuscular Hgb Conc 33.3 g/dL (32-36); Mean Corpuscular Volume 91.3 fL (80-100); Mean Platelet Volume 9.9 fL (7.4-10.4); Monocytes # (auto) 1.03 K/uL (0.11-0.59); Monocytes % (auto) 9.8 %; Neutrophils # (auto) 7.07 K/uL (1.4-6.5); Neutrophils % (auto) 67.2 %; Platelet Count 320 K/uL (130-400); RDW Coefficient of Variation 14.7 % (11.5-14.5); RDW Standard Deviation 48.8 fL (36.4-46.3); Red Blood Count 4.27 M/uL (4.7-6.1); White Blood Count 10.52 K/uL (4.8-10.8)
[2018-11-01 07:29] LABS: BUN Creatinine Ratio 14.7 (10-20); Calcium 8.1 mg/dl (8.5-10.1); Creatinine Clr Calc Pharmacy 86.6 ml/min; Est GFR (African American) 82.4; Est GFR (Non-African American) 71.1; Potassium 3.7 mmol/L (3.5-5.1)
[2018-11-01] MEDS: DOCUSATE SODIUM 100 MG CAP PO SCH ×2 (09:04→20:42)
[2018-11-01] MEDS: METOPROLOL TARTRATE 25 MG TAB PO SCH ×2 (09:04→20:43)
[2018-11-01] MEDS: FAMOTIDINE 20 MG TAB PO SCH ×2 (09:04→20:43)
[2018-11-01] MEDS: HEPARIN SOD 5,000 UNIT/0.5 ML VIAL SQ SCH ×2 (09:04→20:45)
--- NOTE | 2018-11-01 09:09 | Urology Progress Note ---
Date of Service November 01, 2018 Subjective Patient is afebrile vital signs are stable. He has no complaints. He is now starting to pass gas. He has had several episodes of diarrhea. Is tolerating sips of clear liquids Exam Abdomen soft bowel sounds are present incisions are clean and dry Extremities without calf pain or edema Assessment improving post laparoscopic nephrectomy We will advance diet as tolerated Continue out of bed Physical Exam 2 Vital Signs (Past 24 Hours): Last Vital Signs Temp 36.3 C L 11/01/18 07:26 Pulse 90 11/01/18 07:26 Resp 18 11/01/18 07:26 BP 159/98 H 11/01/18 07:26 Pulse Ox 93 11/01/18 07:26 Results & Data Laboratory Results Laboratory Results - last 24 hr 11/01/18 11/01/18 06:17 06:17 WBC 10.52 RBC 4.27 L Hgb 13.0 L Hct 39.0 L MCV 91.3 MCH 30.4 MCHC 33.3 RDW Std Deviation 48.8 H RDW Coeff of Nan 14.7 H Plt Count 320 MPV 9.9 Immature Gran % (Auto) 0.3 Neut % (Auto) 67.2 Lymph % (Auto) 20.6 [place] % (Auto) 9.8 Eos % (Auto) 1.9 Baso % (Auto) 0.2 Immature Gran # (Auto) 0.03 H Neut # (Auto) 7.07 H Lymph # (Auto) 2.17 [place] # (Auto) 1.03 H Eos # (Auto) 0.20 Baso # (Auto) 0.02 Sodium 134 L Potassium 3.7 Chloride 101 Carbon Dioxide 24 Anion Gap 10.0 BUN 15 Creatinine 1.05 Est Cr Clr Drug Dosing 86.6 Est GFR ( Amer) 82.4 Est GFR (Non-Af Amer) 71.1 BUN/Creatinine Ratio 14.7 Glucose 104 H Calcium 8.1 L
--- NOTE | 2018-11-01 13:48 | Hospitalist Progress Note ---
Date of Service November 01, 2018 Assessment & Plan (1) Right renal mass: - S/P R Lap Hand-Assisted Radical Nephrectomy on 10/28 - suspected RCC - Surgical management per primary team (2) Elevated blood pressure reading: - No formal diagnosis of HTN - Secondary to tumor burden vs essential htn - - bp responded well to addition of second dose of metoprolol tartrate in the evening - continue metoprolol bid - Recommend GI symptom control/pain control - Recommend outpatient monitoring of this when acute problems/situations resolve to assess for further BP control needs (3) Abdominal distension: Post op ileus as see on KUB 10/30 - diarrhea x 2 over the night, less nausea today - continue to advance diet as tolerated (4) KYUNG (acute kidney injury): Creatinine 1.46 10/31 - wnl after IVF. Will continue NSS @ 125 until patient is consistently taking po Subjective Mild nausea but no emesis, two episodes of diarrhea over the night, less belching. Able to tolerate sips and chips. Review of Systems All systems reviewed & are unremarkable except as noted in HPI & below Physical Exam 2 Vital Signs (Past 24 Hours): Last Vital Signs Temp 36.3 C L 11/01/18 07:26 Pulse 90 11/01/18 07:26 Resp 18 11/01/18 07:26 BP 159/98 H 11/01/18 07:26 Pulse Ox 93 11/01/18 07:26 Physical Exam: General: no distress Eyes: normal inspection, PERLL Respiratory: chest non tender, clear to auscultation, normal breath sounds, no respiratory distress, no accessory muscle use Cardiac: regular rate and rhythm, no rub or gallop, no murmur, no edema, no jvd GI/: hypoactive bowel sounds, no abd pain or tenderness, soft, distended Extremities: normal range of motion, normal strength, non tender Neuro/Psych: alert and oriented x 3, normal mood and affect Skin: normal color, dry
[2018-11-01] MEDS: ONDANSETRON INJ 2 MG/ML 2 ML VIAL IV PRN (21:07)
[2018-11-02] MEDS: SODIUM CHLORIDE 0.9% 1000ML 1,000 ML IV SCH ×2 (05:14→11:39)
[2018-11-02] MEDS: AMPICILLIN/SULBACTAM SOD 3,000 MG in 0.9 % SODIUM CHLORIDE 100 ML IV SCH ×3 (05:14→17:22)
[2018-11-02 07:48] LABS: Basophils # (auto) 0.02 K/uL (0-0.2); Basophils % (auto) 0.2 %; Eosinophils % (auto) 3.8 %; Hemoglobin 12.3 g/dL (14.0-18.0); Immature Granulocytes # (auto) 0.05 K/uL (0.00-0.02); Immature Granulocytes % (auto) 0.5 %; Lymphocytes # (auto) 2.14 K/uL (1.2-3.4); Lymphocytes % (auto) 20.5 %; Mean Corpuscular Hgb Conc 33.2 g/dL (32-36); Mean Corpuscular Volume 92.5 fL (80-100); Mean Platelet Volume 9.3 fL (7.4-10.4); Monocytes # (auto) 1.14 K/uL (0.11-0.59); Monocytes % (auto) 10.9 %; Neutrophils # (auto) 6.67 K/uL (1.4-6.5); Neutrophils % (auto) 64.1 %; Platelet Count 300 K/uL (130-400); RDW Coefficient of Variation 14.5 % (11.5-14.5); RDW Standard Deviation 49.3 fL (36.4-46.3); White Blood Count 10.42 K/uL (4.8-10.8)
[2018-11-02 08:17] LABS: BUN Creatinine Ratio 13.3 (10-20); Calcium 8.1 mg/dl (8.5-10.1); Creatinine Clr Calc Pharmacy 93.7 ml/min; Est GFR (African American) 90.7; Est GFR (Non-African American) 78.2; Potassium 3.7 mmol/L (3.5-5.1)
[2018-11-02] MEDS: HEPARIN SOD 5,000 UNIT/0.5 ML VIAL SQ SCH ×2 (08:19→20:20)
[2018-11-02] MEDS: DOCUSATE SODIUM 100 MG CAP PO SCH ×2 (08:20→20:20)
[2018-11-02] MEDS: METOPROLOL TARTRATE 25 MG TAB PO SCH ×2 (08:20→20:20)
[2018-11-02] MEDS: FAMOTIDINE 20 MG TAB PO SCH ×2 (08:20→20:20)
--- NOTE | 2018-11-02 08:45 | Urology Progress Note ---
Date of Service November 02, 2018 Assessment & Plan (1) Right renal mass: (2) Abdominal distension: POD #5 s/p R radical nephrectomy post op ileus. Having diarrhea, flatus. Afebrile, VSS. Labs stable. BP better controlled with hospitalist support, appreciate input. Appeared to be progressing over the weekend, however he unfortunately had large emesis last evening, ~3-4 hours after dinner. Plan to decrease diet back to clear liquids Add boost clear to each tray. IVF changed to D5 1/2 NS with 20me KCL Encourage chewing gum Encourage him to ambulate the halls TID Recheck KUB today, and in AM Will continue to follow closely. Subjective POD #5 s/p R radical nephrectomy, post op ileus Pt oob to chair at time of evaluation. Unfortunately had another large emesis last evening, 3-4 hours after dinner. Having bouts of diarrhea and flatus. Some mild abdominal bloating. Voiding sponteously without difficulty, denies hematuria Has been ambulating lightly in halls. VSS and labs stable - BP improved with medication adjustment. - spo2 holding off of supplemental O2 Continues on IV unasyn for enterococcus UTI preop. Physical Exam 2 Vital Signs (Past 24 Hours): Last Vital Signs Temp 36.6 C 11/02/18 07:07 Pulse 86 11/02/18 07:07 Resp 18 11/02/18 07:07 BP 146/91 H 11/02/18 07:07 Pulse Ox 94 11/02/18 07:07 Physical Exam: A&Ox3 RRR Abd slightly distended, soft. belching. Mild incisional discomfort Panther Burn intact to L lateral abdominal incision, scant amount of serous drainage. No erythema, streaking or other signs of infection. Results & Data Laboratory Results Laboratory Results - last 48 hr 11/01/18 11/01/18 11/02/18 06:17 06:17 07:32 WBC 10.52 10.42 RBC 4.27 L 4.00 L Hgb 13.0 L 12.3 L Hct 39.0 L 37.0 L MCV 91.3 92.5 MCH 30.4 30.8 MCHC 33.3 33.2 RDW Std Deviation 48.8 H 49.3 H RDW Coeff of Nan 14.7 H 14.5 Plt Count 320 300 MPV 9.9 9.3 Immature Gran % (Auto) 0.3 0.5 Neut % (Auto) 67.2 64.1 Lymph % (Auto) 20.6 20.5 [place] % (Auto) 9.8 10.9 Eos % (Auto) 1.9 3.8 Baso % (Auto) 0.2 0.2 Immature Gran # (Auto) 0.03 H 0.05 H Neut # (Auto) 7.07 H 6.67 H Lymph # (Auto) 2.17 2.14 [place] # (Auto) 1.03 H 1.14 H Eos # (Auto) 0.20 0.40 Baso # (Auto) 0.02 0.02 Sodium 134 L Potassium 3.7 Chloride 101 Carbon Dioxide 24 Anion Gap 10.0 BUN 15 Creatinine 1.05 Est Cr Clr Drug Dosing 86.6 Est GFR ( Amer) 82.4 Est GFR (Non-Af Amer) 71.1 BUN/Creatinine Ratio 14.7 Glucose 104 H Calcium 8.1 L 11/02/18 07:32 WBC RBC Hgb Hct MCV MCH MCHC RDW Std Deviation RDW Coeff of Nan Plt Count MPV Immature Gran % (Auto) Neut % (Auto) Lymph % (Auto) [place] % (Auto) Eos % (Auto) Baso % (Auto) Immature Gran # (Auto) Neut # (Auto) Lymph # (Auto) [place] # (Auto) Eos # (Auto) Baso # (Auto) Sodium 136 Potassium 3.7 Chloride 104 Carbon Dioxide 26 Anion Gap 7.0 BUN 13 Creatinine 0.97 Est Cr Clr Drug Dosing 93.7 Est GFR ( Amer) 90.7 Est GFR (Non-Af Amer) 78.2 BUN/Creatinine Ratio 13.3 Glucose 99 Calcium 8.1 L
--- NOTE | 2018-11-02 12:04 | XRay Report ---
KUB HISTORY: Acute abdominal pain and distention with prior surgery. emesis, post op ileus COMPARISON: KUB 10/30/2018. FINDINGS: Sophia project over the abdominal right lower quadrant. Progressively worsened small bowel dilation measuring up to 7.7 cm, previously measuring up to approximately 5.4 cm. Moderate volume of formed st ool noted about the right hemicolon. Mottled lucencies project over the abdominal left lower quadrant . No definite pneumatosis or pneumoperitoneum. Degenerative changes of the spine and hips. IMPRESSION: Progressively worsened small bowel dilation suggests ongoing postoperative ileus or small bowel obstr uction. Continued follow-up recommended. Electronically signed by: Justin Morfin M.D. 11/02/2018 12:03 PM
[2018-11-02] MEDS: D5W AND 1/2NSS + 20MEQ KCL 20 MEQ/1,000 ML BAG IV SCH ×2 (12:58→21:26)
--- NOTE | 2018-11-02 13:06 | Hospitalist Progress Note ---
Date of Service November 02, 2018 Assessment & Plan (1) Right renal mass: - S/P R Lap Hand-Assisted Radical Nephrectomy on 10/28 - suspected RCC - Surgical management per primary team (2) Elevated blood pressure reading: - No formal diagnosis of HTN - Secondary to tumor burden vs essential htn - - bp responded well to addition of second dose of metoprolol tartrate in the evening - continue metoprolol bid - Recommend GI symptom control/pain control - Recommend outpatient monitoring of this when acute problems/situations resolve to assess for further BP control needs (3) Abdominal distension: Post op ileus as see on KUB 10/30 - continues to have diarrhea and nausea/vomiting - would have patient remain NPO today given progression on KUB of ileus and continued symptoms. (4) KYUNG (acute kidney injury): Creatinine 1.46 10/31 - wnl after IVF. Will continue NSS @ 125 until patient is consistently taking po Subjective Mr. Oswald had two moderate sized emesis last night. He continues to have a lot of belching. He did have a number of liquid stools. Review of Systems All systems reviewed & are unremarkable except as noted in HPI & below Physical Exam 2 Vital Signs (Past 24 Hours): Last Vital Signs Temp 36.6 C 11/02/18 07:07 Pulse 86 11/02/18 07:07 Resp 18 11/02/18 07:07 BP 146/91 H 11/02/18 07:07 Pulse Ox 94 11/02/18 07:07 Physical Exam: General: no distress Eyes: normal inspection, PERLL Respiratory: chest non tender, clear to auscultation, normal breath sounds, no respiratory distress, no accessory muscle use Cardiac: regular rate and rhythm, no rub or gallop, no murmur, no edema, no jvd GI/: active bowel sounds, abdomen tender soft, distended Extremities: normal range of motion, normal strength, non tender Neuro/Psych: alert and oriented x 3, normal mood and affect Skin: normal color, dry
[2018-11-02] MEDS: ONDANSETRON INJ 2 MG/ML 2 ML VIAL IV PRN ×2 (14:56→22:38)
[2018-11-03] MEDS: AMPICILLIN/SULBACTAM SOD 3,000 MG in 0.9 % SODIUM CHLORIDE 100 ML IV SCH ×5 (00:03→23:33)
[2018-11-03] MEDS: D5W AND 1/2NSS + 20MEQ KCL 20 MEQ/1,000 ML BAG IV SCH ×3 (05:08→21:19)
[2018-11-03 06:49] LABS: Basophils # (auto) 0.02 K/uL (0-0.2); Basophils % (auto) 0.1 %; Eosinophils # (auto) 0.42 K/uL (0-0.5); Eosinophils % (auto) 3.1 %; Hematocrit (blood only) 37.8 % (42-52); Hemoglobin 12.7 g/dL (14.0-18.0); Immature Granulocytes # (auto) 0.03 K/uL (0.00-0.02); Immature Granulocytes % (auto) 0.2 %; Lymphocytes # (auto) 1.54 K/uL (1.2-3.4); Lymphocytes % (auto) 11.4 %; Mean Corpuscular Hgb Conc 33.6 g/dL (32-36); Mean Corpuscular Volume 91.7 fL (80-100); Mean Platelet Volume 9.8 fL (7.4-10.4); Monocytes # (auto) 1.17 K/uL (0.11-0.59); Monocytes % (auto) 8.7 %; Neutrophils # (auto) 10.27 K/uL (1.4-6.5); Neutrophils % (auto) 76.5 %; Platelet Count 335 K/uL (130-400); RDW Coefficient of Variation 14.5 % (11.5-14.5); RDW Standard Deviation 48.9 fL (36.4-46.3); Red Blood Count 4.12 M/uL (4.7-6.1); White Blood Count 13.45 K/uL (4.8-10.8)
--- NOTE | 2018-11-03 07:16 | XRay Report ---
KUB HISTORY: Acute generalized abdominal pain with distention post op ileus, emesis COMPARISON: KUB 11/02/2018. FINDINGS: Persistent yet decreased small bowel distention. Small bowel loops measure up to approximately 5.6 cm , previously 7.7 cm. Air is also noted within the stomach with minimal air seen within the colon. Mot tled lucencies about the right lateral midabdomen redemonstrated. No urolith or gross pneumoperitoneu m identified. Degenerative changes of the spine and hips. Surgical clips project over the abdominal r ight lower quadrant. IMPRESSION: Persistent yet decreased small bowel distention suggestive of probable small bowel ileus. Electronically signed by: Justin Morfin M.D. 11/03/2018 7:14 AM
[2018-11-03 07:23] LABS: BUN Creatinine Ratio 8.7 (10-20); Creatinine Clr Calc Pharmacy 90.9 ml/min; Est GFR (African American) 87.4; Est GFR (Non-African American) 75.4; Potassium 3.8 mmol/L (3.5-5.1)
[2018-11-03] MEDS: METOPROLOL TARTRATE 25 MG TAB PO SCH ×2 (07:33→21:17)
[2018-11-03] MEDS: HEPARIN SOD 5,000 UNIT/0.5 ML VIAL SQ SCH ×2 (07:33→21:21)
[2018-11-03] MEDS: DOCUSATE SODIUM 100 MG CAP PO SCH ×2 (07:33→21:18)
[2018-11-03] MEDS: FAMOTIDINE 20 MG TAB PO SCH ×2 (07:34→21:17)
--- NOTE | 2018-11-03 09:06 | Urology Progress Note ---
Date of Service November 03, 2018 Assessment & Plan (1) Postoperative ileus: (2) Right renal mass: POD #6 s/p R radical nephrectomy, post op ileus Mild leukocytosis today. remains afebrile Cr and electrolytes stable. VS Stable with mild hypertension. Vomiting and diarrhea overnight. Now with large amount of belching, spitting up Appreciate hospitalist and gen surgery recommendations. - Plan to keep NPO and Encourage ambulation Will continue IVFs. Dr. Gallagher has also seen and evaluated patient today. Please see additional comments as indicated. Subjective POD #6 s/p R radical nephrectomy, post op ileus Pt having a difficult post operative course. More episodes of vomiting last evening, green bilious, also with large diarrhea last evening. Pt sitting in chair at time of evaluation, conversive and in good spirits. Presently denies nausea. Denies CP/SOB. Denies fever/chills. Able to get some rest last evening. VSS, moderate hypertension but improved from days past. NG tube ordered last evening, unsuccessful attempt x3, patient declined further attempts. Gen surg consulted to r/o bowel obstruction and post operative ileus recommendations. 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 - Minimal erythema around small port incisions, likely reactive. Non-tender, no increased warmth, no drainage. Results & Data Laboratory Results Laboratory Results - last 48 hr 11/02/18 11/02/18 11/03/18 07:32 07:32 06:10 WBC 10.42 13.45 H RBC 4.00 L 4.12 L Hgb 12.3 L 12.7 L Hct 37.0 L 37.8 L MCV 92.5 91.7 MCH 30.8 30.8 MCHC 33.2 33.6 RDW Std Deviation 49.3 H 48.9 H RDW Coeff of Nan 14.5 14.5 Plt Count 300 335 MPV 9.3 9.8 Immature Gran % (Auto) 0.5 0.2 Neut % (Auto) 64.1 76.5 Lymph % (Auto) 20.5 11.4 [place] % (Auto) 10.9 8.7 Eos % (Auto) 3.8 3.1 Baso % (Auto) 0.2 0.1 Immature Gran # (Auto) 0.05 H 0.03 H Neut # (Auto) 6.67 H 10.27 H Lymph # (Auto) 2.14 1.54 [place] # (Auto) 1.14 H 1.17 H Eos # (Auto) 0.40 0.42 Baso # (Auto) 0.02 0.02 Sodium 136 Potassium 3.7 Chloride 104 Carbon Dioxide 26 Anion Gap 7.0 BUN 13 Creatinine 0.97 Est Cr Clr Drug Dosing 93.7 Est GFR ( Amer) 90.7 Est GFR (Non-Af Amer) 78.2 BUN/Creatinine Ratio 13.3 Glucose 99 Calcium 8.1 L 11/03/18 06:10 WBC RBC Hgb Hct MCV MCH MCHC RDW Std Deviation RDW Coeff of Nan Plt Count MPV Immature Gran % (Auto) Neut % (Auto) Lymph % (Auto) [place] % (Auto) Eos % (Auto) Baso % (Auto) Immature Gran # (Auto) Neut # (Auto) Lymph # (Auto) [place] # (Auto) Eos # (Auto) Baso # (Auto) Sodium 136 Potassium 3.8 Chloride 103 Carbon Dioxide 25 Anion Gap 8.0 BUN 9 Creatinine 1.00 Est Cr Clr Drug Dosing 90.9 Est GFR ( Amer) 87.4 Est GFR (Non-Af Amer) 75.4 BUN/Creatinine Ratio 8.7 L Glucose 114 H Calcium 8.0 L
--- NOTE | 2018-11-03 10:16 | Surgery Consultation ---
Date of Consultation November 03, 2018 Assessment & Plan (1) Postoperative ileus: vitals stable, afebrile +bowel function (large liquid stools this morning and gas) Persistent emesis (every time he sits up) Abdomen less distended today per patient Plan: No acute surgical intervention required at this time. Continue conservative treatment: NPO, IV fluids, Pain management as needed (limit narcotics), IV Zofran as needed, ambulation to increase GI motility. If persistent emesis, would recommend trying to place another NGT GI evaluation given continued emesis although + bowel function, no abdominal pain, and less distention ??gastritis/PUD Continue NPO for today Will follow Dr. Ibarra has seen and examined pt, agrees with above History of Present Illness Reason for Consultation: Worsening ileus/ SBO Requesting Physician: Anny HERNANDEZ Attending Physician: Jonah Gallagher, II, DO History of Present Illness Vinh is currently POD # 6 s/p laparoscopic assisted right total nephrectomy by Dr. Gallagher for right renal mass. Vinh has had episodes of emesis for last two days and increasing abdominal distention and pain. NGT was attempted last evening but was difficult and patient refused placement. Vinh states he had large liquid bowel movement and gas this morning. States however he is still having vomiting, every time he sits up he expels something. Has been up and walking hallways. Feels has abdomen is less bloated today than it has been and is feeling better. Allergies Allergy/AdvReac Type Severity Reaction Status Date / Time pollen extracts Allergy Mild HAYFEVER-SNEEZING, Verified 10/27/18 12:00 CONGESTION Home Medications Home Medications Medication Instructions Recorded Confirmed Type chlorpheniramine maleate 4 mg PO Q6H PRN 10/19/18 10/27/18 History [Chlor-Trimeton] amoxicillin-pot clavulanate 1 tab PO BID 10/27/18 10/27/18 History ciprofloxacin HCl 500 mg PO BID 10/27/18 10/27/18 History metoprolol tartrate 25 mg PO DAILY 10/27/18 10/27/18 History cyclobenzaprine 5 mg PO BID PRN #14 tab 10/30/18 Rx docusate sodium [Colace] 100 mg PO BID #60 cap 10/30/18 Rx oxycodone-acetaminophen [Percocet] 1 tab PO TID PRN #20 tab 10/30/18 Rx Patient History Medical History History of hematuria History of kidney stones Indwelling Leon catheter present Surgical History History of tonsillectomy (Resolved 1954) Family History Father , 1981, heart attack Heart attack Diabetes Mother , 2000, brain cancer Brain cancer Social History marital status: Current Living Situation: Alone Other Information That Helps Us Care for You: No Feels Safe at Home: Yes Safety Concerns: Feels Safe At This Time Smoking Status: Former smoker Cigarettes per Day: Smoked x 15-20 years. Smoked ~2ppd. Do You Dip or Chew Tobacco: No Smoking End Date: 5-6 YR AGO Hx Alcohol Use: Yes Alcohol type: hard liquor Alcohol Intake Frequency: 0-2 drinks per day Hx Substance Use: No Beliefs That Will Affect Care: None Communication Ability: Effective Review of Systems Constitutional: as per Subjective / HPI Physical Exam Vital Signs (Past 24 Hours): Last Vital Signs Temp 36.7 C 11/03/18 07:39 Pulse 81 11/03/18 07:39 Resp 18 11/03/18 07:39 BP 151/92 H 11/03/18 07:39 Pulse Ox 91 11/03/18 07:39 Constitutional: WD/WN, vitals as above no acute distress Respiratory: normal respiratory effort; no respiratory distress Gastrointestinal (Abdomen): Inspection/Auscultation: abdomen normal to inspection, + abdomen distended (mild) and normal bowel sounds Percussion/Palpation: abdomen soft; abdomen nontender, no guarding and abdomen not rigid Skin: no rashes, warm and dry Psychiatric: A+Ox3, euthymic affect Results & Data Laboratory Results 11/03/18 11/03/18 Range/Units 06:10 06:10 WBC 13.45 H (4.8-10.8) K/uL RBC 4.12 L (4.7-6.1) M/uL Hgb 12.7 L (14.0-18.0) g/dL Hct 37.8 L (42-52) % MCV 91.7 (80-100) fL MCH 30.8 (25-34) pg MCHC 33.6 (32-36) g/dL RDW Std Deviation 48.9 H (36.4-46.3) fL RDW Coeff of Nan 14.5 (11.5-14.5) % Plt Count 335 (130-400) K/uL MPV 9.8 (7.4-10.4) fL Immature Gran % (Auto) 0.2 % Neut % (Auto) 76.5 % Lymph % (Auto) 11.4 % [place] % (Auto) 8.7 % Eos % (Auto) 3.1 % Baso % (Auto) 0.1 % Immature Gran # (Auto) 0.03 H (0.00-0.02) K/uL Neut # (Auto) 10.27 H (1.4-6.5) K/uL Lymph # (Auto) 1.54 (1.2-3.4) K/uL [place] # (Auto) 1.17 H (0.11-0.59) K/uL Eos # (Auto) 0.42 (0-0.5) K/uL Baso # (Auto) 0.02 (0-0.2) K/uL Sodium 136 (136-145) mmol/L Potassium 3.8 (3.5-5.1) mmol/L Chloride 103 (98-107) mmol/L Carbon Dioxide 25 (21-32) mmol/L Anion Gap 8.0 (3-11) BUN 9 (7-18) mg/dl Creatinine 1.00 (0.6-1.4) mg/dl Est Cr Clr Drug Dosing 90.9 ml/min Est GFR ( Amer) 87.4 Est GFR (Non-Af Amer) 75.4 BUN/Creatinine Ratio 8.7 L (10-20) Glucose 114 H (70-99) mg/dl Calcium 8.0 L (8.5-10.1) mg/dl Diagnostic Findings KUB HISTORY: Acute generalized abdominal pain with distention post op ileus, emesis COMPARISON: KUB 11/02/2018. FINDINGS: Persistent yet decreased small bowel distention. Small bowel loops measure up to approximately 5.6 cm, previously 7.7 cm. Air is also noted within the stomach with minimal air seen within the colon. Mottled lucencies about the right lateral midabdomen redemonstrated. No urolith or gross pneumoperitoneum john ntified. Degenerative changes of the spine and hips. Surgical clips project over the abdominal right lower quadrant. IMPRESSION: Persistent yet decreased small bowel distention suggestive of probable small bowel ileus.
--- NOTE | 2018-11-03 13:23 | Hospitalist Progress Note ---
Date of Service November 03, 2018 Assessment & Plan (1) Right renal mass: - S/P R Lap Hand-Assisted Radical Nephrectomy on 10/28 - suspected RCC - Surgical management per primary team (2) Elevated blood pressure reading: - No formal diagnosis of HTN - Secondary to tumor burden vs essential htn - - bp responded well to addition of second dose of metoprolol tartrate in the evening - continue metoprolol bid - Recommend GI symptom control/pain control - Recommend outpatient monitoring of this when acute problems/situations resolve to assess for further BP control needs (3) Abdominal distension: Post op ileus as see on KUB 10/30 - continues to have diarrhea and nausea/vomiting - consulted general surgery - no surgical intervention for now, continue supportive measures (4) KYUNG (acute kidney injury): Creatinine 1.46 10/31 - wnl after IVF. Will continue NSS @ 125 until patient is consistently taking po Subjective Mr. Oswadl continues to have nausea, vomiting and diarrhea. He appears comfortable, seated in a chair. No other symptoms Review of Systems All systems reviewed & are unremarkable except as noted in HPI & below Physical Exam 2 Vital Signs (Past 24 Hours): Last Vital Signs Temp 36.7 C 11/03/18 11:56 Pulse 80 11/03/18 11:56 Resp 16 11/03/18 11:56 BP 153/95 H 11/03/18 11:56 Pulse Ox 96 11/03/18 11:56 Physical Exam: General: no distress Eyes: normal inspection, PERLL Respiratory: chest non tender, clear to auscultation, normal breath sounds, no respiratory distress, no accessory muscle use Cardiac: regular rate and rhythm, no rub or gallop, no murmur, no edema, no jvd GI/: active bowel sounds, no abd pain or tenderness, soft, distended Extremities: normal range of motion, normal strength, non tender Neuro/Psych: alert and oriented x 3, normal mood and affect Skin: normal color, dry Results & Data Laboratory Results Abnormal lab results 11/03/18 11/03/18 Range/Units 06:10 06:10 WBC 13.45 H (4.8-10.8) K/uL RBC 4.12 L (4.7-6.1) M/uL Hgb 12.7 L (14.0-18.0) g/dL Hct 37.8 L (42-52) % RDW Std Deviation 48.9 H (36.4-46.3) fL Immature Gran # (Auto) 0.03 H (0.00-0.02) K/uL Neut # (Auto) 10.27 H (1.4-6.5) K/uL [place] # (Auto) 1.17 H (0.11-0.59) K/uL BUN/Creatinine Ratio 8.7 L (10-20) Glucose 114 H (70-99) mg/dl Calcium 8.0 L (8.5-10.1) mg/dl
[2018-11-03] MEDS: PANTOprazole 40 MG in SYRINGE 0 ML IV SCH (14:03)
--- NOTE | 2018-11-03 14:59 | Gastrointestinal Consultation ---
Date of Consultation November 03, 2018 Assessment & Plan (1) Postoperative ileus: Emesis yesterday and today improving and likely related to improving post op ileus. Continue antiemetics, slowly advance diet. Diarrhea - will check for C-diff but likely related to clear liquids and antibiotics. Encouraged pt to consider w/u for possible reflux as an OP. However, pt tell me that he doesn't like additional medicaitons or procedures and that he has thus far refused colonoscopy. He wasn't able to explain why does not wish to undergo colonoscopy with any more specific reasons. GI will watch peripherally, please contact us new/worrisome GI issues. Supervising Physician Co-Signing Physician Notes I have seen and examined the patient and discussed the management with MARY Monroy. Agree with further plan of care as documented in her assessment and plan. History of Present Illness Reason for Consultation: persistent emesis Requesting Physician: Shirley Mishra PA-C Attending Physician: Jonah Gallagher, II, DO History of Present Illness Mr. Vinh Oswald is a 73 yr old male who is PO day #5 from rt nephretomy by Dr. Jonah Gallagher for a right renal mass. Gi is consulted for vomiting. After surgery pt developed a distended abdomen. KUB on 10/30, and consistent with small and large bowel ileus, improving each day. Seen by surgery who has been conservatively managing the ileus. We are consulted by surgery for vomiting. Pt tells me 4 episodes of vomiting yesterday, 2 small episodes today and much less nausea and less abdomen distention today. Reports abbout 4 loose to liquid brown BMs/day for the past 4 days. He also reports that prior to surgery, for years, he has had intermittent epigastric discomfort and belching which he assumes if reflux because improved with TUMS but has not had a w/u for this issue. Allergies Allergy/AdvReac Type Severity Reaction Status Date / Time pollen extracts Allergy Mild HAYFEVER-SNEEZING, Verified 10/27/18 12:00 CONGESTION Home Medications Home Medications Medication Instructions Recorded Confirmed Type chlorpheniramine maleate 4 mg PO Q6H PRN 10/19/18 10/27/18 History [Chlor-Trimeton] amoxicillin-pot clavulanate 1 tab PO BID 10/27/18 10/27/18 History ciprofloxacin HCl 500 mg PO BID 10/27/18 10/27/18 History metoprolol tartrate 25 mg PO DAILY 10/27/18 10/27/18 History cyclobenzaprine 5 mg PO BID PRN #14 tab 10/30/18 Rx docusate sodium [Colace] 100 mg PO BID #60 cap 10/30/18 Rx oxycodone-acetaminophen [Percocet] 1 tab PO TID PRN #20 tab 10/30/18 Rx Patient History Medical History History of hematuria History of kidney stones Indwelling Leon catheter present Surgical History History of tonsillectomy (Resolved 1954) Family History Father , 1981, heart attack Heart attack Diabetes Mother , 2000, brain cancer Brain cancer Social History marital status: Current Living Situation: Alone Other Information That Helps Us Care for You: No Feels Safe at Home: Yes Safety Concerns: Feels Safe At This Time Smoking Status: Former smoker Cigarettes per Day: Smoked x 15-20 years. Smoked ~2ppd. Do You Dip or Chew Tobacco: No Smoking End Date: 5-6 YR AGO Hx Alcohol Use: Yes Alcohol type: hard liquor Alcohol Intake Frequency: 0-2 drinks per day Hx Substance Use: No Beliefs That Will Affect Care: None Communication Ability: Effective Review of Systems Constitutional: no fever, no chills and no body aches Respiratory: no cough, no chest congestion and no dyspnea Cardiovascular: no chest pain, no palpitations, no syncope and no edema Gastrointestinal: + abdominal pain (distention, discomfort - improved), + nausea and + vomiting hx of increased belching ? reflux prior to surgery, but mild, mostly occurring when sitting for long periods such as when driving > 5hrs. Musculoskeletal: no joint pain and no myalgia Integumentary: no pruritus and no change in skin color Neurologic: no gait abnormality, no unsteadiness and no confusion Psychiatric: no behavioral changes, no depression and no confusion Endocrine: no problem reported Hematologic / Lymphatic: no easy bleeding, no easy bruising and no lymphadenopathy Physical Exam 2 Vital Signs (Past 24 Hours): Last Vital Signs Temp 36.7 C 11/03/18 11:56 Pulse 80 11/03/18 11:56 Resp 16 11/03/18 11:56 BP 153/95 H 11/03/18 11:56 Pulse Ox 96 11/03/18 11:56 Constitutional: WD/WN, vitals as above well nourished; no acute distress Eyes: PERRL, conjunctivae normal, anicteric sclerae ENMT: external ear and nose normal, oropharynx normal Neck: trachea midline, no thyromegaly Respiratory: normal respiratory effort, lungs clear to auscultation Cardiovascular: RRR, no murmur, no edema Gastrointestinal (Abdomen): Normal BS, soft, incision with kimberlee w/o edema or drainage. Diffusely tender - area of incision avoided. Skin: no rashes, warm and dry normal turgor Neurologic: awake; not confused Psychiatric: A+Ox3, euthymic affect Lymphatic: no cervical or axillary lymphadenopathy Results & Data Laboratory Results WBC intermittently elevated, WBC 13. Hb 12, Hct 37. Diagnostic Findings 11/03 KUB
[2018-11-04] MEDS: D5W AND 1/2NSS + 20MEQ KCL 20 MEQ/1,000 ML BAG IV SCH ×3 (06:00→19:55)
[2018-11-04] MEDS: AMPICILLIN/SULBACTAM SOD 3,000 MG in 0.9 % SODIUM CHLORIDE 100 ML IV SCH ×4 (06:00→23:56)
[2018-11-04] MEDS: DOCUSATE SODIUM 100 MG CAP PO SCH ×2 (07:49→20:55)
[2018-11-04] MEDS: METOPROLOL TARTRATE 25 MG TAB PO SCH ×2 (07:49→20:59)
[2018-11-04] MEDS: HEPARIN SOD 5,000 UNIT/0.5 ML VIAL SQ SCH ×2 (07:49→20:57)
[2018-11-04] MEDS: FAMOTIDINE 20 MG TAB PO SCH ×2 (07:50→20:59)
[2018-11-04 08:18] LABS: Basophils # (auto) 0.02 K/uL (0-0.2); Basophils % (auto) 0.1 %; Eosinophils # (auto) 0.48 K/uL (0-0.5); Eosinophils % (auto) 3.5 %; Hematocrit (blood only) 39.1 % (42-52); Hemoglobin 12.7 g/dL (14.0-18.0); Immature Granulocytes # (auto) 0.04 K/uL (0.00-0.02); Immature Granulocytes % (auto) 0.3 %; Lymphocytes # (auto) 1.82 K/uL (1.2-3.4); Lymphocytes % (auto) 13.4 %; Mean Corpuscular Hgb Conc 32.5 g/dL (32-36); Mean Corpuscular Volume 91.8 fL (80-100); Mean Platelet Volume 9.7 fL (7.4-10.4); Monocytes # (auto) 1.14 K/uL (0.11-0.59); Monocytes % (auto) 8.4 %; Neutrophils # (auto) 10.09 K/uL (1.4-6.5); Neutrophils % (auto) 74.3 %; Platelet Count 321 K/uL (130-400); RDW Coefficient of Variation 14.5 % (11.5-14.5); RDW Standard Deviation 48.7 fL (36.4-46.3); Red Blood Count 4.26 M/uL (4.7-6.1); White Blood Count 13.59 K/uL (4.8-10.8)
[2018-11-04 08:59] LABS: Calcium 8.2 mg/dl (8.5-10.1); Creatinine Clr Calc Pharmacy 99.9 ml/min; Est GFR (African American) 97.9; Est GFR (Non-African American) 84.5; Potassium 3.7 mmol/L (3.5-5.1)
[2018-11-04] MEDS: LISINOPRIL 5 MG TAB PO SCH (10:28)
[2018-11-04] MEDS: PANTOprazole 40 MG in SYRINGE 0 ML IV SCH (10:30)
--- NOTE | 2018-11-04 10:48 | Urology Progress Note ---
Date of Service November 04, 2018 Assessment & Plan (1) Right renal mass: POD #7 s/p R radical nephrectomy, post op ileus Appreciate support from hospitalist, general surgery and GI. Cr and electrolytes remain stable. VS Stable with hypertension. Diarrhea q2h - c.diff negative. Emesis improving, still with belching/spitting up phlegm. Encourage ambulation Continue IVFs Increase diet to clears today, slowly start with sips of water. Will add Boost clear for protein. Plan to remove kimberlee tomorrow. Will continue to follow closely. Subjective POD #7 s/p R radical nephrectomy, post op ileus VSS, hypertensive. Afebrile. Feeling better today. Reports having no further emesis since yesterday AM. Still having belching, spitting up phlegm. Diarrhea q2h, states having larger volumes. Reports some stomach cramping, "hunger pains". GI consulted - appreciate input. c.diff negative. Recommend continue anti-emetics, slowly advance diet Possible outpatient colonoscopy at later date. Presently denies nausea. Denies CP/SOB. Denies fever/chills. Able to get some rest last evening, woken q2 hours for diarrhea. Physical Exam Vital Signs (Past 24 Hours): Last Vital Signs Temp 36.4 C L 11/04/18 07:09 Pulse 81 11/04/18 07:09 Resp 18 11/04/18 07:09 BP 164/94 H 11/04/18 07:09 Pulse Ox 94 11/04/18 07:09 Physical Exam: A&Ox3 RRR abd soft, distention improving. Incisions well approximated, no-drainage. Results & Data Laboratory Results Laboratory Results - last 48 hr 11/03/18 11/03/18 11/04/18 06:10 06:10 07:27 WBC 13.45 H 13.59 H RBC 4.12 L 4.26 L Hgb 12.7 L 12.7 L Hct 37.8 L 39.1 L MCV 91.7 91.8 MCH 30.8 29.8 MCHC 33.6 32.5 RDW Std Deviation 48.9 H 48.7 H RDW Coeff of Nan 14.5 14.5 Plt Count 335 321 MPV 9.8 9.7 Immature Gran % (Auto) 0.2 0.3 Neut % (Auto) 76.5 74.3 Lymph % (Auto) 11.4 13.4 [place] % (Auto) 8.7 8.4 Eos % (Auto) 3.1 3.5 Baso % (Auto) 0.1 0.1 Immature Gran # (Auto) 0.03 H 0.04 H Neut # (Auto) 10.27 H 10.09 H Lymph # (Auto) 1.54 1.82 [place] # (Auto) 1.17 H 1.14 H Eos # (Auto) 0.42 0.48 Baso # (Auto) 0.02 0.02 Sodium 136 Potassium 3.8 Chloride 103 Carbon Dioxide 25 Anion Gap 8.0 BUN 9 Creatinine 1.00 Est Cr Clr Drug Dosing 90.9 Est GFR ( Amer) 87.4 Est GFR (Non-Af Amer) 75.4 BUN/Creatinine Ratio 8.7 L Glucose 114 H Calcium 8.0 L Stl C. diff Tox B Gene 11/04/18 11/04/18 07:27 Unknown WBC RBC Hgb Hct MCV MCH MCHC RDW Std Deviation RDW Coeff of Nan Plt Count MPV Immature Gran % (Auto) Neut % (Auto) Lymph % (Auto) [place] % (Auto) Eos % (Auto) Baso % (Auto) Immature Gran # (Auto) Neut # (Auto) Lymph # (Auto) [place] # (Auto) Eos # (Auto) Baso # (Auto) Sodium 134 L Potassium 3.7 Chloride 101 Carbon Dioxide 25 Anion Gap 8.0 BUN 6 L Creatinine 0.91 Est Cr Clr Drug Dosing 99.9 Est GFR ( Amer) 97.9 Est GFR (Non-Af Amer) 84.5 BUN/Creatinine Ratio 7.0 L Glucose 117 H Calcium 8.2 L Stl C. diff Tox B Gene Neg C.diff Toxin B
--- NOTE | 2018-11-04 10:53 | Surgery Progress Note ---
Date of Service November 04, 2018 Assessment & Plan (1) Postoperative ileus: vitals stable, afebrile Resolved +bowel function - c. diff abdomen soft nontender vomiting resolved Plan: No acute surgical intervention Recommend advancing diet slowly as tolerated continue OOB to chair and ambulate Our services signing off, please call with questions or concerns Dr. Ibarra was present during my examination and agrees with above. Subjective feeling better having more liquid bowel movements and gas now one episode of vomiting in last 36 hours per patient clear liquids for breakfast this morning Physical Exam Vital Signs (Past 24 Hours): Last Vital Signs Temp 36.4 C L 11/04/18 07:09 Pulse 81 11/04/18 07:09 Resp 18 11/04/18 07:09 BP 164/94 H 11/04/18 07:09 Pulse Ox 94 11/04/18 07:09 Constitutional: WD/WN, vitals as above no acute distress Respiratory: normal respiratory effort; no respiratory distress Gastrointestinal (Abdomen): Inspection/Auscultation: abdomen normal to inspection and + abdominal surgical incision (RLQ surgical incision Sophia present. Laparoscopic incisions healed); abdomen not distended Percussion/Palpation: abdomen soft; abdomen nontender, no guarding and abdomen not rigid Skin: no rashes, warm and dry Psychiatric: A+Ox3, euthymic affect Results & Data Laboratory Results 11/04/18 11/04/18 11/04/18 Range/Units Unknown 07:27 07:27 WBC 13.59 H (4.8-10.8) K/uL RBC 4.26 L (4.7-6.1) M/uL Hgb 12.7 L (14.0-18.0) g/dL Hct 39.1 L (42-52) % MCV 91.8 (80-100) fL MCH 29.8 (25-34) pg MCHC 32.5 (32-36) g/dL RDW Std Deviation 48.7 H (36.4-46.3) fL RDW Coeff of Nan 14.5 (11.5-14.5) % Plt Count 321 (130-400) K/uL MPV 9.7 (7.4-10.4) fL Immature Gran % (Auto) 0.3 % Neut % (Auto) 74.3 % Lymph % (Auto) 13.4 % [place] % (Auto) 8.4 % Eos % (Auto) 3.5 % Baso % (Auto) 0.1 % Immature Gran # (Auto) 0.04 H (0.00-0.02) K/uL Neut # (Auto) 10.09 H (1.4-6.5) K/uL Lymph # (Auto) 1.82 (1.2-3.4) K/uL [place] # (Auto) 1.14 H (0.11-0.59) K/uL Eos # (Auto) 0.48 (0-0.5) K/uL Baso # (Auto) 0.02 (0-0.2) K/uL Sodium 134 L (136-145) mmol/L Potassium 3.7 (3.5-5.1) mmol/L Chloride 101 (98-107) mmol/L Carbon Dioxide 25 (21-32) mmol/L Anion Gap 8.0 (3-11) BUN 6 L (7-18) mg/dl Creatinine 0.91 (0.6-1.4) mg/dl Est Cr Clr Drug Dosing 99.9 ml/min Est GFR ( Amer) 97.9 Est GFR (Non-Af Amer) 84.5 BUN/Creatinine Ratio 7.0 L (10-20) Glucose 117 H (70-99) mg/dl Calcium 8.2 L (8.5-10.1) mg/dl Stl C. diff Tox B Gene Neg C.diff Toxin B (Neg)
--- NOTE | 2018-11-04 18:31 | Hospitalist Progress Note ---
Date of Service November 04, 2018 Assessment & Plan (1) Right renal mass: (2) Elevated blood pressure reading: (3) Abdominal distension: (4) KYUNG (acute kidney injury): 73 yo WM admitted on October 27, 2018 because of hematuria l was found to have right renal mass: right renal mass: S/P R Lap Hand-Assisted Radical Nephrectomy on 10/28 - suspected RCC Local wounds incision healing well, kidney function stable, Elevated blood pressure reading: No formal diagnosis of HTN, possible secondary to tumor burden vs essential htn - continue metoprolol bid , add hydralazine scheduled, postop ileus with abdominal distension which was confirmed by abdominal CT, surgeon input appreciated, continue n.p.o. C. difficile negative, KYUNG (acute kidney injury): Resolved, will continue follow-up Increase activity, PT OT, plan to discharge soon Subjective Abdominal distention is better, has bowel movement, no nausea vomiting Denies fever and chill, patient making urine, Physical Exam Vital Signs (Past 24 Hours): Last Vital Signs Temp 36.8 C 11/04/18 15:43 Pulse 73 11/04/18 15:43 Resp 18 11/04/18 15:43 BP 155/98 H 11/04/18 15:43 Pulse Ox 95 11/04/18 15:43 Physical Exam: General: Pleasant conversational, no distress Eyes: normal inspection, PERLL Respiratory: chest non tender, clear to auscultation, normal breath sounds, no respiratory distress, no accessory muscle use Cardiac: regular rate and rhythm, no rub or gallop, no murmur, no edema, no jvd GI/: active bowel sounds, soft, mild distended Extremities: normal range of motion, normal strength, non tender Neuro/Psych: alert and oriented x 3, normal mood and affect Skin: normal color, dry Results & Data Laboratory Results Laboratory Results - last 24 hr 11/04/18 11/04/18 11/04/18 07:27 07:27 Unknown WBC 13.59 H RBC 4.26 L Hgb 12.7 L Hct 39.1 L MCV 91.8 MCH 29.8 MCHC 32.5 RDW Std Deviation 48.7 H RDW Coeff of Nan 14.5 Plt Count 321 MPV 9.7 Immature Gran % (Auto) 0.3 Neut % (Auto) 74.3 Lymph % (Auto) 13.4 [place] % (Auto) 8.4 Eos % (Auto) 3.5 Baso % (Auto) 0.1 Immature Gran # (Auto) 0.04 H Neut # (Auto) 10.09 H Lymph # (Auto) 1.82 [place] # (Auto) 1.14 H Eos # (Auto) 0.48 Baso # (Auto) 0.02 Sodium 134 L Potassium 3.7 Chloride 101 Carbon Dioxide 25 Anion Gap 8.0 BUN 6 L Creatinine 0.91 Est Cr Clr Drug Dosing 99.9 Est GFR ( Amer) 97.9 Est GFR (Non-Af Amer) 84.5 BUN/Creatinine Ratio 7.0 L Glucose 117 H Calcium 8.2 L Stl C. diff Tox B Gene Neg C.diff Toxin B
[2018-11-05] MEDS: D5W AND 1/2NSS + 20MEQ KCL 20 MEQ/1,000 ML BAG IV SCH ×2 (02:06→11:00)
[2018-11-05] MEDS ORDERED: Nursing to Pharmacy Communication ONE (04:50)
[2018-11-05] MEDS: AMPICILLIN/SULBACTAM SOD 3,000 MG in 0.9 % SODIUM CHLORIDE 100 ML IV SCH ×2 (05:59→12:52)
[2018-11-05 07:21] LABS: Basophils # (auto) 0.02 K/uL (0-0.2); Basophils % (auto) 0.2 %; Eosinophils # (auto) 0.36 K/uL (0-0.5); Eosinophils % (auto) 3.3 %; Hematocrit (blood only) 39.5 % (42-52); Hemoglobin 13.1 g/dL (14.0-18.0); Immature Granulocytes # (auto) 0.03 K/uL (0.00-0.02); Immature Granulocytes % (auto) 0.3 %; Lymphocytes # (auto) 1.86 K/uL (1.2-3.4); Lymphocytes % (auto) 17.2 %; Mean Corpuscular Hgb Conc 33.2 g/dL (32-36); Mean Corpuscular Volume 91.6 fL (80-100); Mean Platelet Volume 9.7 fL (7.4-10.4); Monocytes # (auto) 0.84 K/uL (0.11-0.59); Monocytes % (auto) 7.8 %; Neutrophils # (auto) 7.71 K/uL (1.4-6.5); Neutrophils % (auto) 71.2 %; Platelet Count 329 K/uL (130-400); RDW Coefficient of Variation 14.5 % (11.5-14.5); RDW Standard Deviation 49.2 fL (36.4-46.3); Red Blood Count 4.31 M/uL (4.7-6.1); White Blood Count 10.82 K/uL (4.8-10.8)
[2018-11-05 07:57] LABS: Calcium 8.2 mg/dl (8.5-10.1); Creatinine Clr Calc Pharmacy 91.8 ml/min; Est GFR (African American) 88.4; Est GFR (Non-African American) 76.3; Potassium 3.9 mmol/L (3.5-5.1)
[2018-11-05] MEDS: DOCUSATE SODIUM 100 MG CAP PO SCH ×2 (08:17→19:53)
[2018-11-05] MEDS: HEPARIN SOD 5,000 UNIT/0.5 ML VIAL SQ SCH ×2 (08:18→19:53)
[2018-11-05] MEDS: METOPROLOL TARTRATE 25 MG TAB PO SCH ×2 (08:22→19:56)
[2018-11-05] MEDS: FAMOTIDINE 20 MG TAB PO SCH ×2 (08:22→19:56)
[2018-11-05] MEDS: LISINOPRIL 5 MG TAB PO SCH (08:23)
[2018-11-05] MEDS ORDERED: LOPERAMIDE HCL 2 MG CAP PO STA (10:57)
[2018-11-05] MEDS: PANTOprazole 40 MG in SYRINGE 0 ML IV SCH (11:03)
[2018-11-05] MEDS: LOPERAMIDE HCL 2 MG CAP PO PRN (16:31)
--- NOTE | 2018-11-05 16:57 | Hospitalist Progress Note ---
Date of Service November 05, 2018 Assessment & Plan (1) Right renal mass: (2) Elevated blood pressure reading: (3) Abdominal distension: (4) KYUNG (acute kidney injury): 73 yo WM admitted on October 27, 2018 because of hematuria was found to have right renal mass: right renal mass: S/P R Lap Hand-Assisted Radical Nephrectomy on 10/28 - suspected RCC Local wounds incision healing well, kidney function stable, This will be management by the primary team Elevated blood pressure reading: No formal diagnosis of HTN, possible secondary to tumor burden vs essential htn - continue metoprolol bid , and hydralazine scheduled, postop ileus with abdominal distension which was confirmed by abdominal CT, surgeon input appreciated, Now has diarrhea. C. difficile negative, We will give Imodium as needed, and advance diet KYUNG (acute kidney injury): Resolved, will continue follow-up Increase activity, PT OT, Subjective Still has significant diarrhea, every 2-hour, General condition feeling better,No fever chills no nausea vomiting Denied palpitation Review of Systems Constitutional: negative weakness, or fatigue Respiratory: no cough, sputum, wheezing, or dyspnea on exertion Cardiac: No chest pain, No orthopnea, Abdomen: No pain, No nausea, No vomiting, Musculoskeletal: No joint pain, No muscle pain, No swelling, : No dysuria, No urinary frequency, No incontinence, No hematuria Neurologic: No paralysis, No weakness, No numbness/tingling, Physical Exam Vital Signs (Past 24 Hours): Last Vital Signs Temp 36.5 C 11/05/18 16:08 Pulse 79 11/05/18 16:08 Resp 16 11/05/18 16:08 BP 135/91 11/05/18 16:08 Pulse Ox 96 11/05/18 16:08 Physical Exam: General: Pleasant conversational, no distress, Speak full sentence, Eyes: normal inspection, PERLL Respiratory: chest non tender, clear to auscultation, normal breath sounds, no respiratory distress, no accessory muscle use Cardiac: regular rate and rhythm, no rub or gallop, no murmur, no edema, no jvd GI/: active bowel sounds, soft, mild distended Extremities: normal range of motion, normal strength, non tender Neuro/Psych: alert and oriented x 3, normal mood and affect Skin: normal color, dry Results & Data Laboratory Results Laboratory Results - last 24 hr 11/05/18 11/05/18 06:41 06:41 WBC 10.82 H RBC 4.31 L Hgb 13.1 L Hct 39.5 L MCV 91.6 MCH 30.4 MCHC 33.2 RDW Std Deviation 49.2 H RDW Coeff of Nan 14.5 Plt Count 329 MPV 9.7 Immature Gran % (Auto) 0.3 Neut % (Auto) 71.2 Lymph % (Auto) 17.2 Ray % (Auto) 7.8 Eos % (Auto) 3.3 Baso % (Auto) 0.2 Immature Gran # (Auto) 0.03 H Neut # (Auto) 7.71 H Lymph # (Auto) 1.86 Ray # (Auto) 0.84 H Eos # (Auto) 0.36 Baso # (Auto) 0.02 Sodium 133 L Potassium 3.9 Chloride 103 Carbon Dioxide 25 Anion Gap 6.0 BUN 6 L Creatinine 0.99 Est Cr Clr Drug Dosing 91.8 Est GFR ( Amer) 88.4 Est GFR (Non-Af Amer) 76.3 BUN/Creatinine Ratio 6.0 L Glucose 106 H Calcium 8.2 L
--- NOTE | 2018-11-05 19:35 | Urology Progress Note ---
Date of Service November 05, 2018 Assessment & Plan (1) Right renal mass: POD #8 s/p R radical nephrectomy, post op ileus resolving Appreciate ongoing support from hospitalist, general surgery and GI. Pt doing well today. Tolerated advancing diet today. Kimberlee removed. D/C'd unasyn today. Emesis improving, still with belching/spitting up phlegm. Encourage ambulation Continue IVFs Possibly home in 1-2 days if continues to tolerate PO diet. Subjective POD #8 s/p R radical nephrectomy, post op ileus VSS, afebrile Doing well today, tolerating full liquid diet, increased to regular diet. Nausea improved still having multiple bouts of diarrhea, negative for c.diff. medicine to add immodium. voiding spontaneously Denies CP/SOB. Denies fever/chills. Physical Exam Vital Signs (Past 24 Hours): Last Vital Signs Temp 36.5 C 11/05/18 16:08 Pulse 79 11/05/18 16:08 Resp 16 11/05/18 16:08 BP 135/91 11/05/18 16:08 Pulse Ox 96 11/05/18 16:08 Physical Exam: A&Ox3 RRR abd soft incisions well approximated, kimberlee removed today by nursing Results & Data Laboratory Results Laboratory Results - last 48 hr 11/04/18 11/04/18 11/04/18 07:27 07:27 Unknown WBC 13.59 H RBC 4.26 L Hgb 12.7 L Hct 39.1 L MCV 91.8 MCH 29.8 MCHC 32.5 RDW Std Deviation 48.7 H RDW Coeff of Nan 14.5 Plt Count 321 MPV 9.7 Immature Gran % (Auto) 0.3 Neut % (Auto) 74.3 Lymph % (Auto) 13.4 [place] % (Auto) 8.4 Eos % (Auto) 3.5 Baso % (Auto) 0.1 Immature Gran # (Auto) 0.04 H Neut # (Auto) 10.09 H Lymph # (Auto) 1.82 [place] # (Auto) 1.14 H Eos # (Auto) 0.48 Baso # (Auto) 0.02 Sodium 134 L Potassium 3.7 Chloride 101 Carbon Dioxide 25 Anion Gap 8.0 BUN 6 L Creatinine 0.91 Est Cr Clr Drug Dosing 99.9 Est GFR ( Amer) 97.9 Est GFR (Non-Af Amer) 84.5 BUN/Creatinine Ratio 7.0 L Glucose 117 H Calcium 8.2 L Stl C. diff Tox B Gene Neg C.diff Toxin B 11/05/18 11/05/18 06:41 06:41 WBC 10.82 H RBC 4.31 L Hgb 13.1 L Hct 39.5 L MCV 91.6 MCH 30.4 MCHC 33.2 RDW Std Deviation 49.2 H RDW Coeff of Nan 14.5 Plt Count 329 MPV 9.7 Immature Gran % (Auto) 0.3 Neut % (Auto) 71.2 Lymph % (Auto) 17.2 [place] % (Auto) 7.8 Eos % (Auto) 3.3 Baso % (Auto) 0.2 Immature Gran # (Auto) 0.03 H Neut # (Auto) 7.71 H Lymph # (Auto) 1.86 [place] # (Auto) 0.84 H Eos # (Auto) 0.36 Baso # (Auto) 0.02 Sodium 133 L Potassium 3.9 Chloride 103 Carbon Dioxide 25 Anion Gap 6.0 BUN 6 L Creatinine 0.99 Est Cr Clr Drug Dosing 91.8 Est GFR ( Amer) 88.4 Est GFR (Non-Af Amer) 76.3 BUN/Creatinine Ratio 6.0 L Glucose 106 H Calcium 8.2 L Stl C. diff Tox B Gene
[2018-11-06 06:27] LABS: Basophils # (auto) 0.03 K/uL (0-0.2); Basophils % (auto) 0.3 %; Eosinophils # (auto) 0.31 K/uL (0-0.5); Hematocrit (blood only) 38.8 % (42-52); Hemoglobin 13.2 g/dL (14.0-18.0); Immature Granulocytes # (auto) 0.03 K/uL (0.00-0.02); Immature Granulocytes % (auto) 0.3 %; Lymphocytes # (auto) 2.41 K/uL (1.2-3.4); Lymphocytes % (auto) 23.1 %; Mean Corpuscular Volume 91.3 fL (80-100); Mean Platelet Volume 9.7 fL (7.4-10.4); Monocytes # (auto) 1.14 K/uL (0.11-0.59); Monocytes % (auto) 10.9 %; Neutrophils # (auto) 6.53 K/uL (1.4-6.5); Neutrophils % (auto) 62.4 %; Platelet Count 346 K/uL (130-400); RDW Coefficient of Variation 14.6 % (11.5-14.5); RDW Standard Deviation 49.1 fL (36.4-46.3); Red Blood Count 4.25 M/uL (4.7-6.1); White Blood Count 10.45 K/uL (4.8-10.8)
[2018-11-06 06:54] LABS: BUN Creatinine Ratio 6.8 (10-20); Calcium 8.1 mg/dl (8.5-10.1); Creatinine Clr Calc Pharmacy 84.9 ml/min; Est GFR (African American) 80.5; Est GFR (Non-African American) 69.5; Potassium 3.7 mmol/L (3.5-5.1)
[2018-11-06] MEDS: LOPERAMIDE HCL 2 MG CAP PO PRN ×2 (07:11→12:47)
[2018-11-06] MEDS ORDERED: NURSING DECISION MEDICATION ONE (09:26)
[2018-11-06] MEDS: FAMOTIDINE 20 MG TAB PO SCH (09:28)
[2018-11-06] MEDS: DOCUSATE SODIUM 100 MG CAP PO SCH (09:28)
[2018-11-06] MEDS: LISINOPRIL 5 MG TAB PO SCH (09:29)
[2018-11-06] MEDS ORDERED: COUGH DROP (SUGAR FREE) LOZ 24 LOZ/1 BOX BUCCAL PRN (09:30)
[2018-11-06] MEDS: HEPARIN SOD 5,000 UNIT/0.5 ML VIAL SQ SCH (09:30)
--- NOTE | 2018-11-06 09:30 | Urology Progress Note ---
Date of Service November 06, 2018 Assessment & Plan (1) Right renal mass: POD #9 s/p R radical nephrectomy, post op ileus resolving Appreciate ongoing support from hospitalist, general surgery and GI. Doing well today, tolerating regular diet x2 meals without difficulty Ambulating in halls Denies significant pain Okay to give cough drops for throat irritation, no sign of thrush on exam. Per Dr. Gallagher -okay to discharge home after lunch today if no nausea/emesis. Discharge instructions reviewed with patient, all questions answered. Follow-up as outpatient with Dr. Gallagher to be arranged in 1 week. Subjective POD #9 s/p R radical nephrectomy, post op ileus VSS, afebrile Doing well today, offers no complaints or concerns. Tolerated regular diet for dinner and breakfast without nausea/emesis. Diarrhea is slowing down per patient report. Denies significant pain, has not needed any analgesic x multiple days. Reports a "scratchy throat", no white patches or sign of thrush. Denies CP/SOB. Denies fever/chills. Physical Exam Vital Signs (Past 24 Hours): Last Vital Signs Temp 36.3 C L 11/06/18 07:16 Pulse 82 11/06/18 07:16 Resp 18 11/06/18 07:16 BP 136/81 11/06/18 07:16 Pulse Ox 93 11/06/18 07:16 Physical Exam: A&Ox3 RRR Abd soft, nontender, nondistended. Incisions well approximated, healing nicely. Minimal ecchymosis. No drainage. No JVD, no peripheral edema Results & Data Laboratory Results Laboratory Results - last 48 hr 11/05/18 11/05/18 11/06/18 06:41 06:41 05:55 WBC 10.82 H 10.45 RBC 4.31 L 4.25 L Hgb 13.1 L 13.2 L Hct 39.5 L 38.8 L MCV 91.6 91.3 MCH 30.4 31.1 MCHC 33.2 34.0 RDW Std Deviation 49.2 H 49.1 H RDW Coeff of Nan 14.5 14.6 H Plt Count 329 346 MPV 9.7 9.7 Immature Gran % (Auto) 0.3 0.3 Neut % (Auto) 71.2 62.4 Lymph % (Auto) 17.2 23.1 [place] % (Auto) 7.8 10.9 Eos % (Auto) 3.3 3.0 Baso % (Auto) 0.2 0.3 Immature Gran # (Auto) 0.03 H 0.03 H Neut # (Auto) 7.71 H 6.53 H Lymph # (Auto) 1.86 2.41 [place] # (Auto) 0.84 H 1.14 H Eos # (Auto) 0.36 0.31 Baso # (Auto) 0.02 0.03 Sodium 133 L Potassium 3.9 Chloride 103 Carbon Dioxide 25 Anion Gap 6.0 BUN 6 L Creatinine 0.99 Est Cr Clr Drug Dosing 91.8 Est GFR ( Amer) 88.4 Est GFR (Non-Af Amer) 76.3 BUN/Creatinine Ratio 6.0 L Glucose 106 H Calcium 8.2 L 11/06/18 05:55 WBC RBC Hgb Hct MCV MCH MCHC RDW Std Deviation RDW Coeff of Nan Plt Count MPV Immature Gran % (Auto) Neut % (Auto) Lymph % (Auto) [place] % (Auto) Eos % (Auto) Baso % (Auto) Immature Gran # (Auto) Neut # (Auto) Lymph # (Auto) [place] # (Auto) Eos # (Auto) Baso # (Auto) Sodium 134 L Potassium 3.7 Chloride 103 Carbon Dioxide 22 Anion Gap 9.0 BUN 7 Creatinine 1.07 Est Cr Clr Drug Dosing 84.9 Est GFR ( Amer) 80.5 Est GFR (Non-Af Amer) 69.5 BUN/Creatinine Ratio 6.8 L Glucose 97 Calcium 8.1 L
[2018-11-06] MEDS: METOPROLOL TARTRATE 25 MG TAB PO SCH (10:03)
[2018-11-06] MEDS: PANTOprazole 40 MG in SYRINGE 0 ML IV SCH (11:46)
--- NOTE | 2018-11-06 17:08 | Hospitalist Progress Note ---
Date of Service November 06, 2018 Assessment & Plan (1) Right renal mass: (2) Elevated blood pressure reading: (3) Abdominal distension: (4) KYUNG (acute kidney injury): 73 yo WM admitted on October 27, 2018 because of hematuria was found to have right renal mass: right renal mass: S/P R Lap Hand-Assisted Radical Nephrectomy on 10/28 - suspected RCC Local wounds incision healing well, kidney function stable, This will be management by the primary team Elevated blood pressure reading: No formal diagnosis of HTN, possible secondary to tumor burden vs essential htn - continue metoprolol bid , and hydralazine scheduled, recommend patient can continue current medicine if discharged to home, and PCP can adjust his med postop ileus with abdominal distension which was confirmed by abdominal CT, surgeon input appreciated, was having diarrhea. C. difficile negative, diarrhea improved after Imodium, patient tolerated diet KYUNG (acute kidney injury): Resolved, will continue follow-up Increase activity, PT OT, Discharge plan will be per primary team Subjective diarrhea is much better after Imodium, was having 1-2 time diarrhea so far No fever chills no nausea vomiting, denies abdominal pain, denied palpitation Review of Systems Constitutional: negative weakness, or fatigue Respiratory: no cough, sputum, wheezing, or dyspnea on exertion Cardiac: No chest pain, No orthopnea, Abdomen: See above Musculoskeletal: No joint pain, No muscle pain, No swelling, : No dysuria, No urinary frequency, No incontinence, No hematuria Neurologic: No paralysis, No weakness, No numbness/tingling, Physical Exam Vital Signs (Past 24 Hours): Last Vital Signs Temp 36.3 C L 11/06/18 11:46 Pulse 82 11/06/18 11:46 Resp 18 11/06/18 11:46 BP 148/89 H 11/06/18 11:46 Pulse Ox 93 11/06/18 11:46 Physical Exam: General: Continue looks good, Pleasant conversational, no distress Eyes: normal inspection, PERLL Respiratory: chest non tender, clear to auscultation, normal breath sounds, no respiratory distress, no accessory muscle use Cardiac: regular rate and rhythm, no rub or gallop, no murmur, no edema, no jvd GI/: active bowel sounds, soft, no distended Extremities: normal range of motion, normal strength, non tender Neuro/Psych: alert and oriented x 3, normal mood and affect Skin: normal color, dry Results & Data Laboratory Results Laboratory Results - last 24 hr 11/06/18 11/06/18 05:55 05:55 WBC 10.45 RBC 4.25 L Hgb 13.2 L Hct 38.8 L MCV 91.3 MCH 31.1 MCHC 34.0 RDW Std Deviation 49.1 H RDW Coeff of Nan 14.6 H Plt Count 346 MPV 9.7 Immature Gran % (Auto) 0.3 Neut % (Auto) 62.4 Lymph % (Auto) 23.1 [place] % (Auto) 10.9 Eos % (Auto) 3.0 Baso % (Auto) 0.3 Immature Gran # (Auto) 0.03 H Neut # (Auto) 6.53 H Lymph # (Auto) 2.41 [place] # (Auto) 1.14 H Eos # (Auto) 0.31 Baso # (Auto) 0.03 Sodium 134 L Potassium 3.7 Chloride 103 Carbon Dioxide 22 Anion Gap 9.0 BUN 7 Creatinine 1.07 Est Cr Clr Drug Dosing 84.9 Est GFR ( Amer) 80.5 Est GFR (Non-Af Amer) 69.5 BUN/Creatinine Ratio 6.8 L Glucose 97 Calcium 8.1 L
--- NOTE | 2018-11-08 13:47 | Discharge Summary ---
Date of Service November 12, 2018 Admission HPI Per Admitting Provider See H&P Admission Exam Per Admitting Provider See H&P Principal Diagnosis Renal Mas Discharge Exam Constitutional + not well nourished and no acute distress Eyes no nystagmus ENMT Ears: no hearing impairment Neck trachea midline Respiratory no respiratory distress, no labored breathing, does not use accessory muscles and no cough Cardiovascular Vessels: no JVD Extremities: no calf tenderness and no edema Gastrointestinal (Abdomen) Inspection/Auscultation: abdomen not distended and no abdominal edema Musculoskeletal Head/Neck/Chest: normocephalic Skin no rashes, warm and dry Neurologic awake; not confused and not obtunded Psychiatric Orientation: alert and oriented x 3 Eye Contact: good eye contact Discharge Data Allergies Allergy/AdvReac Type Severity Reaction Status Date / Time pollen extracts Allergy Mild HAYFEVER-SNEEZING, Verified 10/27/18 12:00 CONGESTION Consultations 10/30/18 12:49 Consult Hospitalist Routine 11/03/18 07:56 Consult General Surgery Routine 11/03/18 09:59 Consult Gastroenterology Routine Procedures Performed Operation Date: 10/27/18 13:10 <No data on this case meets the specified criteria> Operation Date: 10/28/18 11:00 Actual Procedures p Right Laparoscopic Hand Assisted Radical Nephrectomy(Right) - Jonah Gallagher II, DO Hospital Course (1) Right renal mass: POD #9 s/p R radical nephrectomy, post op ileus resolving Appreciate ongoing support from hospitalist, general surgery and GI. Doing well today, tolerating regular diet x2 meals without difficulty Ambulating in halls Denies significant pain Okay to give cough drops for throat irritation, no sign of thrush on exam. Per Dr. Gallagher -okay to discharge home after lunch today if no nausea/emesis. Discharge instructions reviewed with patient, all questions answered. Follow-up as outpatient with Dr. Gallagher to be arranged in 1 week. Total Time Total Time Spent Total Time Spent (In Minutes): 15 Total Time Includes: Examination of the Patient, Discharge Planning, Medication Reconciliation and Communication With Other Providers Discharge Plan Discharge Items Patient Disposition: Home - Self-Care Reason For Visit: Gross Hematuria Discharge Diagnosis: Gross hematuria, R renal mass Discharge Goals: Diagnostic testing, Improve disease control and Specific goals Activity: As commented below Activity Comment: walking and stairs in your home are okay Lifting: No more than 10 pounds Bathing: Keep incision dry Bathing Comment: Okay to keep incision open to air. If having some drainage can use gauze. Sexual Activity: Wait until after follow-up appointment Exercise/Sports: Rest today and Wait until after follow-up appointment Driving/Machine Use: Resume 1 day after discharge Driving/Machine Use Comment: please do not drive while taking perscription pain medication Non-emergency contact: Urologist Call non-emergency contact if: your pain is not controlled, your pain is concerning for you, your temperature is above 101, your wound has increased redness, your wound has increased drainage and your wound pain has increased Follow-up/Referrals: Jael Gomes [Primary Care Provider] - (Please, call Dr. Gomes's office to arrange an appointment. The office phone number is [phone].) Diet: Regular Addtl Provider Instructions: Please feel free to contact our office with any questions, concerns or need to change your appointment time at [phone]. Please do not drink alcohol or drive while taking prescription pain medication or cyclobenzaprine. Cyclobenzaprine has been added for muscle spasms. Try to alternate this with pain control to see if this improves relief. We recommend you take a stool softener (colace) twice a day for the first two weeks to prevent straining. Okay to take as needed after that timeframe. Please make appointment with your family doctor to discuss intermediate accountant blood pressure management. We will continue Metoprolol twice a day until you see them to reevaluate. Incision care - please do not pick at surgical glue. Will come off on its own in 5-10days. - You can keep main incision open to air if you are having no drainage. If there is some, that is okay. Just change dry gauze as needed. Prescriptions: New docusate sodium [Colace] 100 mg capsule 100 mg PO BID Qty: 60 RF: 0 oxycodone-acetaminophen [Percocet] 7.5-325 mg tablet 1 tab PO TID PRN (Reason: pain) Qty: 20 RF: 0 cyclobenzaprine 5 mg tablet 5 mg PO BID PRN (Reason: muscle spasm) Qty: 14 RF: 0 metoprolol tartrate 25 mg tablet 25 mg PO BID Qty: 30 RF: 0 loperamide [Imodium A-D] 2 mg tablet 2 mg PO DAILY PRN (Reason: loose stool) Qty: 10 RF: 0 Continued chlorpheniramine maleate [Chlor-Trimeton] 4 mg Tablet 4 mg PO Q6H PRN (Reason: ALLERGIES) RF: 0 Discontinued ciprofloxacin HCl 500 mg Tablet 500 mg PO BID RF: 0 amoxicillin-pot clavulanate 875-125 mg Tablet 1 tab PO BID RF: 0 metoprolol tartrate 25 mg Tablet 25 mg PO DAILY RF: 0 Stand-Alone Forms: [facility] [place], [facility] [place]/Other Patient Handouts: Nephrectomy Dc Discharge Orders: Discharge Order (Routine); Ordered 11/06/18 Ordered By: Alessandra Manzanares Admission Data Admit Date/Time: 10/27/18 18:28 Attending Provider: Jonah Gallagher II Admit Provider: Jonah Gallagher II Primary Care Provider: Jael Gomes Other Providers: Laura Ortega ; Nawaf Rodriguez ; Shirley Fields ; Lewis Larry ; John Ferguson ; Rahul Saucedo ; Flavio Enriquez ; Monica Goldstein ; Yasmeen Roach ; Emelyn Gastelum ; Juanito Hyde ; Page Collier ; Blanco Abarca ; Derrick Miner ; Roberto Carlos Muñoz ; Renée Finley ; Mariana Hagen ; Anny Traylor ; Hailey Stanley ; Harshil Morales ; Mary Barber ; Abby Richards ; Vinh Sorensen ; Brandee Sol ; Catarina Saucedo ; Gay Peters ; Estephania Lyn ; Moe Cano ; Demi Duncan ; Ruben Avila ; Cherri Veras ; Omari Richards ; Michael Ellis ; Kellee Russo ; Arti Carbajal ; Debbie Porras ; Brandee Jerez ; Viki Osullivan Service: Surgical Services Other Interventions: Discharge Summary Assessment (RN) Last Done: 11/06/18 11:46 DC Date/Time DO NOT enter until pt leaves facility: 11/06/18 13:32
--- NOTE | 2018-11-14 11:15 | Coding Query ---
Dr. Gallagher, Your help is needed for correct coding of this account; please clarify if the patients Post-operative Ileus was: ( ) expected from the surgery (X) unexpected complication from the surgery ( ) other please specify Thank you for your time, SURY Blake, AUDIT INTERN My understanding is anything >3 days is considered unexpected. (I sent this query response about a week ago as well) STEF
== END 2018-11-06 13:32 | disposition home or self-care (01) | DRG 657 ==
LOC: ASU 11:32 → 3W 18:28